=== PATIENT | female | born 1945 | race Caucasian/White ===

== ENCOUNTER 2017-03-16 02:46 | Inpatient (IN) | payer OTHER, MEDICAID ==
[2017-03-16 03:15] LABS: % IMMATURE GRANULYOCYTES 1.2 % (0.0-1.1); ABSOLUTE IMMATURE GRANULOCYTES 0.13 10^3/uL (0.00-0.10); ADD DIFF? NO; ADD MORPH? NO; ADD SCAN? NO; ATYPICAL LYMPHOCYTE FLAG 0 (0-99); FRAGMENT RBC FLAG 0 (0-99); HEMATOCRIT 42.1 % (38.0-47.0); HEMOGLOBIN 14.1 g/dL (12.6-16.3); LEFT SHIFT FLG 0 (0-99); LIPEMIA HEMOLYSIS FLAG 80 (0-99); MEAN CELL HEMOGLOBIN 29.1 pg (27.9-34.1); MEAN CELL HEMOGLOBIN CONCENTR. 33.5 g/dL (32.4-36.7); PLATELET CLUMPS FLAG 0 (0-99); PLATELET COUNT 287 10^3/uL (150-400); RED BLOOD CELL COUNT 4.84 10^6/uL (4.18-5.33); RED CELL DISTRIBUTION WIDTH 13.6 % (11.5-15.2)
--- NOTE | 2017-03-16 03:31 | CPEKG ---
Heart Rate: 63 RR Interval: 952 P-R Interval: 180 QRSD Interval: 112 QT Interval: 456 QTC Interval: 467 P [place]: 62 QRS [place]: 72 T Wave [place]: 87 EKG Severity - ABNORMAL ECG - EKG Impression: SINUS RHYTHM EKG Impression: NONSPECIFIC INTRAVENTRICULAR CONDUCTION DELAY EKG Impression: BORDERLINE INFERIOR Q WAVES Electronically Signed By: Rebecca Rodrigues 16-Mar-2017 07:55:46
[2017-03-16 03:33] LABS: ALANINE AMINOTRANSFERASE 42 IU/L (9-52); ALBUMIN 3.5 g/dL (3.5-5.0); ALKALINE PHOSPHATASE 105 IU/L (38-126); ANION GAP 11 mEq/L (8-16); ASPARTATE AMINOTRANSFERASE 29 IU/L (14-46); BILIRUBIN,TOTAL 0.2 mg/dL (0.1-1.4); CALCIUM 9.8 mg/dL (8.5-10.4); CARBON DIOXIDE 31 mEq/l (22-31); CHLORIDE 95 mEq/L (97-110); CREATININE 1.6 mg/dL (0.6-1.0); GLOMERULAR FILTRATION RATE 32; GLUCOSE 316 mg/dL (70-100); POTASSIUM 4.2 mEq/L (3.5-5.2); SODIUM 137 mEq/L (134-144); TOTAL PROTEIN 6.2 g/dL (6.3-8.2)
[2017-03-16] MEDS ORDERED: ACETAMINOPHEN 500 MG TAB PO ONE (04:28)
[2017-03-16] MEDS ORDERED: NS 500 ML IV ONE (04:28)
--- NOTE | 2017-03-16 04:29 | EDPHY ---
H & P Stated Complaint: Fall from standing - Low back and R wrist pain. Time Seen by Provider: 03/16/17 02:53 HPI/ROS: HPI The patient presents with a fall from standing which occurred when she got up to use the bathroom tonight at her long-term. She normally uses a walker. She fell backwards and to her right side onto an outstretched arm. She is complaining of right wrist pain and lower back pain in the midline. The pain is achy in nature and moderate in severity. REVIEW OF SYSTEMS Constitutional: No fever, no chills. Eyes: No discharge. ENT: No sore throat. Cardiovascular: No chest pain, no palpitations. Respiratory: No cough, no shortness of breath. Gastrointestinal: No abdominal pain, no vomiting. Genitourinary: No hematuria. Musculoskeletal: No back pain. Skin: No rashes. Neurological: No headache. PMHx: COPD with chronic hypoxic respiratory failure on 3 L of home O2, obstructive sleep apnea, atrial fibrillation, hypertension, systolic and diastolic CHF, obesity, hypothyroidism, type 2 diabetes on insulin, major depressive disorder Soc Hx: Resides at [facility] PHYSICAL General Appearance: Alert, no distress Eyes: Pupils equal and round no pallor or injection ENT, Mouth: Mucous membranes moist Respiratory: There are no retractions, lungs are clear to auscultation Cardiovascular: Regular rate and rhythm Gastrointestinal: Abdomen is soft and non-tender, no masses, bowel sounds normal Neurological: A&O, 5/5 strength in lower extremities which is symmetric Skin: Warm and dry, no rashes Musculoskeletal: Neck is supple non tender, there is midline tenderness throughout her lumbar spine and paraspinal region Extremities: Right wrist is edematous with limited range of motion secondary to pain, there is 2+ radial pulses, there is sensation intact to light touch of her fingers with brisk capillary refill Psychiatric: Patient is oriented X 3, there is no agitation Source: Patient Exam Limitations: No limitations - Personal History Current Tetanus/Diphtheria Vaccine: Unsure Current Tetanus Diphtheria and Acellular Pertussis (TDAP): Unsure - Medical/Surgical History Hx Asthma: No Hx Chronic Respiratory Disease: Yes Hx Diabetes: Yes Hx Cardiac Disease: Yes Hx Renal Disease: No Hx Cirrhosis: No Hx Alcoholism: No Hx HIV/AIDS: No Hx Splenectomy or Spleen Trauma: No Other PMH: COPD, A-Fib, HTN, hyperlipidemia, Hypothyroidism, DM, depression - Social History Smoking Status: Former smoker Constitutional: Initial Vital Signs Temperature (C) 36.6 C 03/16/17 02:49 Heart Rate 60 03/16/17 02:49 Respiratory Rate 18 03/16/17 02:49 Blood Pressure 161/66 H 03/16/17 02:49 O2 Sat (%) 94 03/16/17 02:49 O2 Delivery Mode Nasal Cannula O2 (L/minute) 3 Allergies/Adverse Reactions: latex Allergy (Verified 03/16/17 02:56) oxycodone Allergy (Verified 03/16/17 02:55) Home Medications: Medication Instructions Recorded Amlodipine Besylate 03/16/17 Benadryl 03/16/17 Byetta 03/16/17 Eliquis 03/16/17 Ferrous Sulfate 03/16/17 Furosemide 03/16/17 Gabapentin 03/16/17 Humalog 03/16/17 Klor-Con 03/16/17 Lantus Solostar 03/16/17 Levothyroxine 03/16/17 Losartan Potassium 03/16/17 Magnesium 03/16/17 Metoprolol Succinate 03/16/17 Montelukast Sodium 03/16/17 Pravastatin Sodium 03/16/17 Soliqua 100 Unit-33 Mcg/ml Pen 03/16/17 Spiriva Inhaler (RX) 03/16/17 Symbicort 80-4.5 Mcg Inhaler 03/16/17 Venlafaxine HCl 03/16/17 Medical Decision Making - Diagnostics EKG Interpretation: EKG: Complete interpretation has been separately recorded in the [employer] [facility] [employer] archive. Summary impression: Sinus rhythm, T-wave inversions in aVL Imaging Results: Right wrist three views shows distal radius fracture and ulnar styloid fracture , interpreted by me, radiology interpretation is pending. Lumbar spinal x-rays three views shows likely L1 compression fracture, interpreted by me, radiology interpretation is pending. Procedures: SPLINT Procedure: Splint placement. A ortho glass sugar-tong splint was applied to the right wrist by james. After application of the splint I returned and re-examined the patient. The splint was adequately immobilizing the joint and distal to the splint the patient's circulation and sensation was intact. Differential Diagnosis: This is a 71-year-old female with multiple medical problems including insulin- dependent diabetes, CHF, obesity who presents from her long-term with a fall from standing. She is complaining of right wrist pain and lower back pain. Differential diagnosis includes mechanical fall, vasovagal episode, electrolyte disturbance, wrist fracture, wrist sprain, lumbar spinal fracture versus strain. In the emergency department, x-rays were performed which did demonstrate distal radius fracture of the right with ulnar styloid fracture. This was nondisplaced and thus was placed in a sugar-tong splint. Lumbar spinal films reveal probable L1 compression fracture. I have a high suspicion clinically given this is where her tenderness is. Labs demonstrated elevated BUN and creatinine. I do not have an old for baseline. Because she has CHF, I have discovered her a small fluid bolus to prevent fluid overload. Glucose is 300, she says this is actually quite good for her, I will give her her usual Humalog. I have discussed the case with the hospitalist Dr. Garcia who will admit the patient. I have consulted with the orthopedist admission specialist and spoke with Marty for Dr. Roman. She their service will see the patient in consultation later in the morning. I have consulted with Neurosurgery for the patient's compression fracture and have discussed the case with Dr. Arevalo who will also consult later in the morning. - Data Points Laboratory Results: Laboratory Results 03/16/17 02:56 03/16/17 02:56 03/16/17 03/16/17 03/16/17 02:56 02:56 02:56 WBC 11.24 10^3/uL H 10^3/uL (3.80-9.50) RBC 4.84 10^6/uL 10^6/uL (4.18-5.33) Hgb 14.1 g/dL g/dL (12.6-16.3) Hct 42.1 % % (38.0-47.0) MCV 87.0 fL fL (81.5-99.8) MCH 29.1 pg pg (27.9-34.1) MCHC 33.5 g/dL g/dL (32.4-36.7) RDW 13.6 % % (11.5-15.2) Plt Count 287 10^3/uL 10^3/uL (150-400) MPV 10.0 fL fL (8.7-11.7) Neut % (Auto) 66.1 % % (39.3-74.2) Lymph % (Auto) 22.8 % % (15.0-45.0) Mcminn % (Auto) 6.5 % % (4.5-13.0) Eos % (Auto) 2.7 % % (0.6-7.6) Baso % (Auto) 0.7 % % (0.3-1.7) Nucleat RBC Rel Count 0.0 % % (0.0-0.2) Absolute Neuts (auto) 7.44 10^3/uL H 10^3/uL (1.70-6.50) Absolute Lymphs (auto) 2.56 10^3/uL 10^3/uL (1.00-3.00) Absolute Monos (auto) 0.73 10^3/uL 10^3/uL (0.30-0.80) Absolute Eos (auto) 0.30 10^3/uL 10^3/uL (0.03-0.40) Absolute Basos (auto) 0.08 10^3/uL 10^3/uL (0.02-0.10) Absolute Nucleated RBC 0.00 10^3/uL 10^3/uL (0-0.01) Immature Gran % 1.2 % H % (0.0-1.1) Immature Gran # 0.13 10^3/uL H 10^3/uL (0.00-0.10) Sodium 137 mEq/L mEq/L (134-144) Potassium 4.2 mEq/L mEq/L (3.5-5.2) Chloride 95 mEq/L L mEq/L (97-110) Carbon Dioxide 31 mEq/l mEq/l (22-31) Anion Gap 11 mEq/L mEq/L (8-16) BUN 43 mg/dL H mg/dL (7-23) Creatinine 1.6 mg/dL H mg/dL (0.6-1.0) Estimated GFR 32 Glucose 316 mg/dL H mg/dL (70-100) Calcium 9.8 mg/dL mg/dL (8.5-10.4) Total Bilirubin 0.2 mg/dL mg/dL (0.1-1.4) AST 29 IU/L IU/L (14-46) ALT 42 IU/L IU/L (9-52) Alkaline Phosphatase 105 IU/L IU/L (38-126) Troponin I 0.013 ng/mL ng/mL (0.000-0.034) Total Protein 6.2 g/dL L g/dL (6.3-8.2) Albumin 3.5 g/dL g/dL (3.5-5.0) Medications Given: Discontinued Medications Acetaminophen (Tylenol) 1,000 mg PO EDNOW ONE Stop: 03/16/17 04:29 Last Admin: 03/16/17 05:18 Dose: 1,000 mg Sodium Chloride (Ns) 500 mls @ 1,000 mls/hr IV EDNOW ONE PRN Reason: Protocol Stop: 03/16/17 04:57 Last Admin: 03/16/17 05:18 Dose: 500 mls Insulin Human Lispro (Humalog Lispro) 13 unit SC EDNOW ONE Stop: 03/16/17 05:28 Last Admin: 03/16/17 05:35 Dose: 13 unit Morphine Sulfate (Morphine) 4 mg IVP EDNOW ONE Stop: 03/16/17 04:29 Last Admin: 03/16/17 05:19 Dose: 4 mg Departure - Departure Disposition: [facility] Inpatient Acute Clinical Impression: Hyperglycemia Fall Qualifiers: Encounter type: initial encounter Qualified Code(s): W19.XXXA - Unspecified fall, initial encounter Distal radius fracture, right Qualifiers: Encounter type: initial encounter Fracture type: closed Fracture morphology: Colles' Qualified Code(s): S52.531A - Colles' fracture of right radius, initial encounter for closed fracture Lumbar compression fracture Qualifiers: Encounter type: initial encounter Lumbar vertebra fracture level: L1 Fracture type: closed Qualified Code(s): S32.010A - Wedge compression fracture of first lumbar vertebra, initial encounter for closed fracture Acute renal failure Qualifiers: Acute renal failure type: unspecified Qualified Code(s): N17.9 - Acute kidney failure, unspecified Condition: Fair
[2017-03-16] MEDS ORDERED: INSULIN LISPRO 100 UNIT/ML SC ONE (05:27)
[2017-03-16] MEDS ORDERED: ALBUTEROL 3 ML DEYVIAL IH PRN (07:21)
[2017-03-16] MEDS ORDERED: ACETAMINOPHEN 325 MG TAB PO PRN (07:21)
[2017-03-16] MEDS ORDERED: ONDANSETRON 4 MG/2 ML VIAL IVP PRN (07:21)
[2017-03-16] MEDS ORDERED: D50W 25 GM/50 ML SYR IVP PRN (07:23)
--- NOTE | 2017-03-16 08:18 | GHP ---
[f rep st] HISTORY AND PHYSICAL DATE OF ADMISSION: 03/16/2017 CHIEF COMPLAINT: Fall, back pain and arm pain. HISTORY OF PRESENT ILLNESS: This is a pleasant 71-year-old female with multiple medical issues inclu ding chronic respiratory failure related to COPD, on 3 L/minute continuously; diabetes type 2, insuli n dependent, uncontrolled, without known complications; obstructive sleep apnea; atrial fibrillation; hypertension; hyperlipidemia; systolic/diastolic CHF; obesity; hypothyroidism; and major depressive disorder, presents to the emergency department from [facility] after a fall. Patient reports that h er oxygen came off at some point in the night time. She did get up to go to the bathroom. However, she became unsteady and fell backwards, landing on her right wrist and on her bottom. Patient denies any loss of consciousness. No chest pain, palpitations, shortness of breath, cough, fevers, chills, or focal deficits. Patient currently denying any numbness or tingling to her hands or feet. She de nies any headache. No lightheadedness. She is complaining of significant back pain and is unable to get comfortable, as she is quite restless. REVIEW OF SYSTEMS: Negative except as noted above. ALLERGIES: Latex and oxycodone. HOME MEDICATIONS: As per accompanying [facility] paper med rec: 1. Klor-Con 10 mEq p.o. Thursday, Thursday, Thursday, , Thursday in the morning with diuresis. 2. Amlodipine 10 mg p.o. daily. 3. Gabapentin 100 mg p.o. in the morning. 4. Levothyroxine 112 mcg p.o. daily in the morning. 5. Losartan HCTZ 50/12.5 mg p.o. daily. 6. Magnesium oxide 500 mg p.o. daily. 7. Metoprolol succinate 200 mg p.o. daily in the morning. 8. Singulair 10 mg p.o. daily in the morning. 9. Spiriva 18 mcg cap 2 inhalations daily. 10. Multivitamin 1 tab p.o. daily. 11. Venlafaxine 150 mg XR daily. 12. Eliquis 5 mg p.o. daily for AFib. 13. Furosemide 20 mg p.o. b.i.d. for edema. 14. Gabapentin 300 mg p.o. b.i.d. for in the afternoon and at h.s. 15. Symbicort 80/4.5 mcg HFA 2 puffs inhaled b.i.d. 16. Benadryl topical cream p.r.n. legs for itching. 17. Ferrous sulfate 325 mg p.o. at h.s. 18. Pravastatin 80 mg p.o. at h.s. 19. Soliqua 0.033 mg/mL, 25 units subcu in the morning. 20. Tylenol PM 0.5 mg at h.s. p.r.n. 21. Tylenol 1000 mg p.o. q.6 hours p.r.n. for mild pain. PAST MEDICAL HISTORY: Significant for diabetes type 2, insulin dependent, uncontrolled, without comp lications; COPD with chronic hypoxic respiratory failure on 3 L/minute continuous oxygen by nasal can nula; obstructive sleep apnea; atrial fibrillation, unknown if chronic or paroxysmal; benign essentia l hypertension; hyperlipidemia; systolic and diastolic CHF; obesity with BMI currently of 38.4; hypot hyroidism; major depressive disorder. PAST SURGICAL HISTORY: Patient denies. FAMILY HISTORY: Patient denies any family history of diabetes, cardiac disease, or other medical pro blems. All were healthy. SOCIAL HISTORY: Patient is a resident at [facility]. She does not currently smoke, drink, or do dr de la cruz. She has a previous history of significant tobacco use. CODE STATUS: Full, as per MOLST form. PHYSICAL EXAMINATION: VITAL SIGNS: Upon arrival to the emergency department: Blood pressure 161/66 , heart rate 60, respiratory rate 18, O2 sat 94% on room air, with temperature 36.6. Current vitals: Blood pressure 142/68, heart rate is 70, respiratory rate 18, O2 sat is 92 on 3 L by nasal cannula. GENERAL: [id number]-gn-[id number] distress with complaints of back pain. Patient is restless, trying to g et comfortable in the [facility]. She is pleasant, but a chronically ill-appearing lady who is also appe ars older than stated age, does appear uncomfortable. She is awake and cooperative. HEAD: Normocep halic, atraumatic. EYES: Extraocular muscles are grossly intact. No scleral icterus, conjunctival injection. Pupils are equal, round, decreased reactivity to light bilaterally and symmetric. Mucous membranes appear slightly dry. Nasal cannula is in place. NECK: Supple. Trachea midline. CV: R egular rate and rhythm. Slightly bradycardic in the 60s. No murmurs, rubs, or gallops appreciated. Slightly distant heart sounds. RESPIRATORY: Unlabored breathing. Lungs are clear to auscultation bilaterally. No wheezes, rales, or rhonchi. Air movement is overall diminished, but no wheezing. A BDOMEN: Obese, soft, nontender to palpation. No rebound, guarding, or masses appreciated. : No Irvin catheter in place. No suprapubic tenderness to palpation. No CVA tenderness. EXTREMITIES: T he patient moves all extremities. Strength is grossly normal, but overall patient with generalized d econditioning and weakness and requires some assistance sitting up. Her right arm is in a splint. N EURO: Cranial nerves grossly nonfocal. No facial drooping. Patient is awake, alert, and oriented x 3. She is somnolent and occasionally does appear to be falling asleep, although she does continue to answer questions with her eyes closed. PSYCH: Patient is anxious. She does appear uncomfortable. She is restless, but does attempt to be cooperative. LABORATORY STUDIES: WBC 11.24, H and H are 14.1, 42.1, MCV of 87.0, platelet count is 287, no bands. Immature granulocyte percent is 1.2. Sodium is 137, potassium is 4.2, chloride 95, CO2 is 31, anion gap 11, BUN 43, creatinine is 1.6, GFR is 32, glucose is 316, calcium 9.8, total bilirubin 0.2, ALT is 42, AST is 29, alkaline phosphatase is 105. Troponin 0.013. Total protein 6.2, albumin is 3.5. EKG reviewed myself, showing normal sinus rhythm in the 60s, nonspecific interventricular conduction delay. Q-waves present in the inferior leads. There is less than [address]-elevation in lead III, II, and aVF. Patient without any complaints of chest pain. Wrist x-ray on the right, reviewed myself. Report pending, showing a distal radius fracture. Lumbar spine x-ray, image reviewed myself, report is pending. Possible acute L1 fracture. ASSESSMENT AND PLAN: Pleasant 71-year-old female with multiple chronic medical problems who presents following a fall, suspect mechanical versus related to possibly some hypoxia, as patient reported th at she had been off her oxygen, trying to get to the bathroom. 1. Intractable back pain related to likely compression fracture. Neurosurgery is consulted from the emergency department. Patient has received morphine. She is not able to get comfortable. Continue with pain medications as possible. Patient has listed oxycodone as an allergy. 2. Right distal radius fracture. Orthopedics consulted from the emergency department. Will plan to see the patient this morning as well. Currently in a splint. Patient is dependent upon a walker fo r ambulation. PT/OT will be consulted for mobility evaluation and assessment. 3. Fall. Suspect this is likely mechanical. The patient did not have any evidence of hypoxia on ar rival. She does report that her oxygen had fallen off when she did get up to go to the bathroom. Franco perla is not currently in any respiratory distress. Rather, she is more uncomfortable and complaining of pain. We will monitor her O2 sats, particularly while patient is receiving any narcotic therapy for her pain control. 4. Acute kidney injury suspected versus chronic kidney disease in the setting of uncontrolled diabet es. Baseline creatinine is unknown at this time, as the patient has never had a visit in our system. We will plan to give some gentle IV fluid hydration, her mucous membranes appear slightly dry, and plan to repeat a BMP in the morning. 5. Leukocytosis is mildly elevated and is likely reactive. Patient without any fevers. No complain ts of dysuria, cough, rhinorrhea, and so we will continue to monitor. 6. Diabetes type 2, uncontrolled, insulin dependent. We will plan to resume patient's insulin and a dd a sliding scale with Accu-Cheks. 7. Benign essential hypertension. Blood pressures at this point slightly elevated, but could be rel ated to pain, so we will continue to monitor. We will add some hydralazine p.r.n. 8. Hyperlipidemia. Continue patient's statin. 9. Obstructive sleep apnea. Will need to clarify if the patient uses a CPAP. However, she states s he only wears her oxygen. Currently not requiring any supportive positive-pressure. Continue with o xygen supplementation. 10. Atrial fibrillation. Patient currently normal sinus rhythm and rate is controlled. Hold off on cardiac monitoring at this time unless patient's heart rate should increase on vital check. 11. Systolic/diastolic congestive heart failure. We will have to monitor patient's fluid status todd sely with some gentle IV fluid hydration as noted above. The patient does currently appear to be sli ghtly dehydrated and also with acute kidney injury. 12. Obesity with BMI of 38.4. Mobilization as possible. PT/OT has been consulted to assist with th e complication with her need for walker and now a right wrist fracture. 13. Hypothyroidism. Continue patient's levothyroxine. 14. Major depressive disorder. Continue patient's venlafaxine. 15. Fluid, electrolyte, nutrition. IV fluids as noted above. Electrolyte monitoring and replacemen t p.r.n. An ADA diet has been ordered. 16. Prophylaxis. SCDs, holding anticoagulation pending surgical service evaluation. CODE STATUS: Per MOLST form and patient is full. Patient's son is listed as proxy. DISPOSITION: Patient has been admitted to observation on the medical floor. We will await recommend ations from the surgical services as well as Therapies to evaluate for patient's likelihood of succes sful discharge back to [facility] with supportive services and equipment. /[id number]/MODL
--- NOTE | 2017-03-16 08:33 | GCON ---
[f rep st] CONSULTATION DATE OF CONSULTATION: 03/16/2017 The patient was seen in the emergency room by Dr. Echeverria and myself at approximately 7:10 this morning. REASON FOR CONSULTATION: Low back pain with evidence of compression fracture on x-ray. HOSPITAL COURSE/HISTORY OF MAJOR MEDICAL FINDINGS: The patient is a 71-year- old female, who currently lives at an assisted living facility, who states that she fell from standing while using the bathroom overnight. She developed pain in her lower back at that time, as well as pain in her right wrist. She denies any leg numbness, tingling, pain, or weakness. Denies any loss of bowel or bladder control. REVIEW OF SYSTEMS: Review of systems is negative other than what is stated in the HPI. Please see pertinent negatives and pertinent positives. PAST MEDICAL HISTORY: Significant for COPD with chronic hypoxic respiratory failure. She is maintained on 3 L of oxygen at home. Has a history of obstructive sleep apnea, atrial fibrillation, hypertension, systolic and diastolic CHF, obesity, hypothyroidism, diabetes type 2, and major depressive disorder. SOCIAL HISTORY: The patient lives at [facility]. She is a prior smoker, but quit many years ago. She denies any alcohol or illicit drugs. FAMILY HISTORY: The patient does have a strong family history of cardiac disease, she states on both sides of her family. PAST SURGICAL HISTORY: The patient denies any past surgical history. ALLERGIES: Latex and oxycodone. HOME MEDICATIONS: Include amlodipine, Benadryl, Byetta, Eliquis, ferrous sulfate, furosemide, gabapentin, Humalog, Klor-Con, Lantus, levothyroxine, losartan, magnesium, metoprolol, montelukast, sodium, pravastatin sodium, Soliqua pen, Spiriva, Symbicort, and venlafaxine. PHYSICAL EXAM: VITALS: BP is 136/60, heart rate is 60. She is 91% on 3 L nasal cannula. Temperature is 36.6. GENERAL APPEARANCE: Patient is in no acute distress. She is alert and oriented x3. She answers questions appropriately, and affect is appropriate for the given situation. NEUROLOGIC: Cranial nerves 2-12 are grossly intact. EOMI and PERRLA. Patient is 5/5 and equal in her bilateral upper and bilateral lower extremities including her deltoids, triceps, biceps, wrist flexors, extensors, interossei, intrinsic litigator , iliopsoas, hamstrings, quadriceps, plantar flexion, dorsiflexion, and EHL. Patient has sensation to her bilateral upper and bilateral lower extremities. MUSCULOSKELETAL: The patient does have tenderness along her lumbar spine, in the upper lumbar region. Negative clonus bilaterally. DIAGNOSTIC REVIEW: Patient underwent an x-ray of her lumbar spine which demonstrated an L1 compression fracture. ASSESSMENT AND PLAN: The patient is a 71-year-old female, who fell from standing overnight, sustained a right wrist injury, which is currently splinted , as well as a low back L1 compression fracture. The patient does have a history of falling. Therefore, we will obtain an MRI to evaluate the acuteness of this fracture and rule out any nerve compression. Did discuss with patient that we will order her a [place] brace for her to wear whenever she is up and out of bed. PT and OT to evaluate the patient as well. If her symptoms do not improve with bracing or she has intractable pain, then she will require surgical stabilization. Patient was again seen and examined both by Dr. Echeverria and myself. /[id number]/MODL MTDD
[2017-03-16] MEDS ORDERED: DIPHENHYDRAMINE CREAM TP PRN (08:59)
[2017-03-16] MEDS ORDERED: ACETAMN/DIPHENHYDRAMINE 500/25MG TAB PO PRN (08:59)
[2017-03-16] MEDS ORDERED: APIXABAN 5 MG TAB PO SCH (09:00)
[2017-03-16] MEDS ORDERED: GABAPENTIN 100 MG CAP PO SCH (09:00)
[2017-03-16] MEDS ORDERED: INSULIN LISPRO SQ SCH (09:00)
[2017-03-16] MEDS ORDERED: Herbals/Supplements -Info Only PO SCH (09:00)
[2017-03-16] MEDS: INSULIN LISPRO 100 UNIT/ML SC SCH ×5 (09:59→17:22)
[2017-03-16] MEDS: IPRATROPIUM/ALBUTEROL 3 ML DEYVIAL IH SCH ×3 (10:13→21:17)
[2017-03-16] MEDS: BUDESONIDE/FORMOTEROL 80/4.5 60 PUFFS/MDI IH SCH ×2 (10:24→21:17)
[2017-03-16] MEDS: TIOTROPIUM INHALER 18 MCG/DOSE 5 DOSE/MDI IH SCH (10:24)
[2017-03-16 11:23] LABS: HEMOGLOBIN A1C 11.1 % (4.0-6.0)
[2017-03-16] MEDS ORDERED: ACETAMINOPHEN 500 MG TAB PO PRN (11:25)
[2017-03-16] MEDS: HYDROCODONE/APAP 5/325 TAB PO PRN ×2 (12:10→20:02)
[2017-03-16] MEDS: POTASSIUM CL 10 MEQ TAB PO SCH (12:10)
[2017-03-16] MEDS: FUROSEMIDE 20 MG TAB PO SCH ×2 (12:10→12:11)
[2017-03-16] MEDS: LOSARTAN/HCTZ 50/12.5 1 TAB PO SCH (12:11)
[2017-03-16] MEDS: VENLAFAXINE XR 75 MG CAP PO SCH (12:11)
[2017-03-16] MEDS: LIXISENATIDE SQ SCH (12:12)
[2017-03-16] MEDS: INSULIN GLARGINE SQ SCH (12:12)
[2017-03-16] MEDS: METOPROLOL SUCCINATE XR 100 MG TAB PO SCH (12:17)
--- NOTE | 2017-03-16 14:13 | ASMTCMCOM ---
CM Note CM Note Notes: Patient admitted through ED s/p mechanical fall. Injury to wrist in addition to compression fracture. Diagnostics and therapy notes pending. Needs to be determinied at this time. She is from [facility]. CM to follow. Date Signed: 03/16/2017 02:13 PM Electronically Signed By:Suri Williamson RN
--- NOTE | 2017-03-16 14:54 | HOSPPROG ---
Hospitalist Progress Note Assessment/Plan: 71y female with c/o back pain and wrist pain. First encounter, chart reviewed. #AMS acute, med related #R Radial fx splint #back pain awaiting MRI #Fall PT/OT #JASON dehydration #Leukocytosis mild follow #Dm 2 cont care uncontrolled needs more aggressive therapy #HTN cont meds #Obese #Afib stable #Dispo unclear, will likely need SnF >35 min spent evaluating pt and care coordination Subjective: Still having pain. Some confustion. Objective: Vital Signs Temp Pulse Resp BP Pulse Ox 36.7 C 69 18 114/92 H 94 03/16/17 12:28 03/16/17 12:28 03/16/17 12:28 03/16/17 12:28 03/16/17 12:28 03/15/17 03/16/17 03/17/17 05:59 05:59 05:59 Intake Total 500 Balance 500 - Physical Exam Constitutional: chronically ill appearing, obese, uncomfortable Eyes: PERRL, anicteric sclera, EOMI Ears, Nose, Mouth, Throat: moist mucous membranes, hearing normal, ears appear normal Cardiovascular: irregularly irregular, edema, No JVD Respiratory: no respiratory distress, no rales or rhonchi, reduced air movement Gastrointestinal: normoactive bowel sounds, No tenderness, No ascites Skin: warm, normal color, No erythema Musculoskeletal: pain with ROM, muscular tenderness, generalized weakness Psychiatric: not anxious, not encephalopathic, poor judgement, poor memory ICD10 Worksheet Patient Problems: Problems Problem Status Onset Fall Acute Distal radius fracture, right Acute Lumbar compression fracture Acute Hyperglycemia Acute Acute renal failure Acute
--- NOTE | 2017-03-16 18:35 | GCON ---
[f rep st] CONSULTATION CHIEF COMPLAINT: Right wrist pain. HISTORY OF PRESENT ILLNESS: Patient is a 71-year-old [id number] female who fell while resid ing in her nursing facility this morning and landed on her outstretched arm. She was seen in the ER, where x-rays were taken that showed a right distal radius fracture and ulnar styloid fracture. She was placed in a sugar-tong splint and made nonweightbearing. She denies any other orthopedic complai nts. PAST MEDICAL HISTORY: COPD with chronic hypoxic respiratory failure, on 3 L of home oxygen; obstruct richi sleep apnea, atrial fibrillation; hypertension, systolic and diastolic; congestive heart failure; obesity; hypothyroidism; type 2 diabetes on insulin; and major depressive disorder. CURRENT MEDICATIONS: Please see medication list in her chart. ALLERGIES TO MEDICATIONS: No known drug allergies. SURGICAL HISTORY: Unremarkable. FAMILY HISTORY: Noncontributory. REVIEW OF SYSTEMS: A 10-point review is done. Negative for any other complaints, concerns, or histo ry, except for what was listed in the HPI. PHYSICAL EXAMINATION: GENERAL: Pleasant, NAD. HEENT: NC/AT, EOMI, PERRLA. Ears and nares patent without discharge. Oropharynx is clear. NECK: Nontender to palpation, full range of motion. MUSCU LOSKELETAL: Right upper extremity: A sugar-tong splint is in place and is well fitted. She is able to move all 5 fingers. She has normal sensation to light touch in the right upper extremity. SKIN: Warm, dry, and intact. NEUROLOGIC: Nonfocal. No deficits noted. PSYCHIATRIC: Alert and oriente d x3. Appropriate mood and affect. RADIOGRAPHS: X-rays are reviewed of the right wrist and show a nondisplaced distal radius fracture a nd ulnar styloid fracture. IMPRESSION: Right nondisplaced distal radius fracture and ulnar styloid fracture. PLAN: Patient was seen and examined by Dr. Roman, and we discussed with the patient that this fractu re would be treated nonoperatively in a splint. She should remain nonweightbearing on the right uppe r extremity. Conservative treatment was discussed, including rest and elevation and the use of ice a nd pain medicine as needed. All questions were answered to the patient's satisfaction. Orthopedical ly, she is stable. /[id number]/MODL
[2017-03-16] MEDS: HYDROmorphONE/DILAUDID 1 MG/ML INJ IVP PRN (19:53)
[2017-03-16] MEDS: PRAVASTATIN SODIUM 40 MG TAB PO SCH (20:02)
[2017-03-16] MEDS: FERROUS SULFATE 325 MG TAB PO SCH (20:02)
[2017-03-16] MEDS ORDERED: NON-FORMULARY NEW DRUG (Pravastatin Sodium [Pravastatin Sodium] 80 MG) PO SCH (21:00)
[2017-03-16] MEDS: LIDOCAINE 5% 1 EA PATCH TD SCH (23:43)
[2017-03-17] MEDS: HYDROCODONE/APAP 5/325 TAB PO PRN ×2 (01:33→21:31)
[2017-03-17] MEDS: IPRATROPIUM/ALBUTEROL 3 ML DEYVIAL IH SCH ×4 (05:13→22:05)
[2017-03-17] MEDS: LEVOTHYROXINE 112 MCG TAB PO SCH (05:13)
[2017-03-17 05:41] LABS: % IMMATURE GRANULYOCYTES 0.6 % (0.0-1.1); ABSOLUTE IMMATURE GRANULOCYTES 0.08 10^3/uL (0.00-0.10); ADD DIFF? NO; ADD MORPH? NO; ADD SCAN? NO; ATYPICAL LYMPHOCYTE FLAG 0 (0-99); FRAGMENT RBC FLAG 0 (0-99); HEMATOCRIT 43.7 % (38.0-47.0); HEMOGLOBIN 14.5 g/dL (12.6-16.3); LEFT SHIFT FLG 0 (0-99); LIPEMIA HEMOLYSIS FLAG 80 (0-99); MEAN CELL HEMOGLOBIN 29.2 pg (27.9-34.1); MEAN CELL HEMOGLOBIN CONCENTR. 33.2 g/dL (32.4-36.7); MEAN CELL VOLUME 88.1 fL (81.5-99.8); MEAN PLATELET VOLUME 9.9 fL (8.7-11.7); PLATELET CLUMPS FLAG 10 (0-99); PLATELET COUNT 245 10^3/uL (150-400); RED BLOOD CELL COUNT 4.96 10^6/uL (4.18-5.33); RED CELL DISTRIBUTION WIDTH 13.8 % (11.5-15.2)
--- NOTE | 2017-03-17 06:52 | NEUSURGPN ---
Assessment/Plan: Assessment: 71 yo female that is admitted to IM s/p fall with L1 compression fracture Plan: -s/p fall with L1 compression fracture -pending MRI of the L spine -pt with lower back pain and denies any LE complaints to me this am -will d/w Dr Echeverria about treatment plan -PT/OT-CPM -[place] brace ordered -defer to ortho for wrist fracture/ortho injuries -will review MRI once completed and develop plan accordingly -warning signs reviewed -call with any questions or concerns -pt understands and agrees Subjective: Awake and alert. NAD. No gonzalez/neck/chest/abd or gu complaints. No f/c/n/v/d. Objective: AAO x 3, PERRLA/EOMI no droop CN 2-12 grossly intact +lt touch 5/5 BUE/BLE = Neuro Check Frequency: per routine Urinary Catheter in Place: No - Physician Discussed Patient with : Juwan Patient Seen by : Juwan Neurosurgery Physical Exam - Vitals, I&O, Labs I and O 03/16/17 03/17/17 03/18/17 05:59 05:59 05:59 Intake Total 1400 Output Total 2800 Balance -1400 Weight 91.444 kg Intake: Oral (ml) 900 IV Infused (ml) 500 Output: Urine (ml) 2800 Bedside Commode 2800 Other: Number of Voids Bedside Commode 1 Vital Signs Temp Pulse Resp BP Pulse Ox 36.7 C 74 16 153/85 H 92 03/17/17 04:25 03/17/17 05:16 03/17/17 05:16 03/17/17 04:25 03/17/17 05:16 Laboratory Results 03/17/17 05:32 ICD10 Worksheet Patient Problems: Problems Problem Status Onset Acute renal failure Acute Distal radius fracture, right Acute Fall Acute Hyperglycemia Acute Lumbar compression fracture Acute
[2017-03-17 07:14] LABS: ANION GAP 11 mEq/L (8-16); CALCIUM 10.2 mg/dL (8.5-10.4); CARBON DIOXIDE 28 mEq/l (22-31); CHLORIDE 99 mEq/L (97-110); CREATININE 1.2 mg/dL (0.6-1.0); GLOMERULAR FILTRATION RATE 44; GLUCOSE 363 mg/dL (70-100); POTASSIUM 4.2 mEq/L (3.5-5.2); SODIUM 138 mEq/L (134-144)
[2017-03-17] MEDS: INSULIN GLARGINE SQ SCH (07:59)
[2017-03-17] MEDS: LIXISENATIDE SQ SCH (07:59)
[2017-03-17] MEDS: INSULIN LISPRO 100 UNIT/ML SC SCH ×6 (08:06→18:08)
[2017-03-17] MEDS: FUROSEMIDE 20 MG TAB PO SCH ×2 (08:23→11:19)
[2017-03-17] MEDS: LOSARTAN/HCTZ 50/12.5 1 TAB PO SCH (08:23)
[2017-03-17] MEDS: METOPROLOL SUCCINATE XR 100 MG TAB PO SCH (08:24)
[2017-03-17] MEDS: POTASSIUM CL 10 MEQ TAB PO SCH (08:24)
[2017-03-17] MEDS: LIDOCAINE 5% 1 EA PATCH TD SCH (08:24)
[2017-03-17] MEDS: HYDROmorphONE/DILAUDID 1 MG/ML INJ IVP PRN ×2 (08:45→12:42)
--- NOTE | 2017-03-17 08:47 | SOAPPROG ---
SOSARAH Progress Note Assessment/Plan: Assessment/Plan: nondisplaced right distal radius fracture and ulnar styloid fracture HOD#1 - Continue pain management - NWB RUE - Continue PT/OT - SCDs/TEDs for mechanical VTE prophylaxis - Follow-up with Dr. Roman in 1 week for repeat x-rays and evaluation 03/17/17 08:44 Subjective: Pt states she is having pain in her back, otherwise, no pain in the R wrist. Pt denies fever, chills, chest pain, SOB, abdominal pain, N/V/D, numbness, tingling and calf pain. Objective: Vital Signs Temp Pulse Resp BP Pulse Ox 36.7 C 88 17 117/53 L 93 03/17/17 04:25 03/17/17 08:24 03/17/17 07:21 03/17/17 08:24 03/17/17 07:21 Laboratory Results 03/17/17 05:32 03/17/17 05:32 03/16/17 03/17/17 03/18/17 05:59 05:59 05:59 Intake Total 1400 Output Total 2800 Balance -1400 Physical Exam - Physical Exam General Appearance: alert, no apparent distress Cardiac/Chest: normal peripheral pulses Skin: normal color, warm/dry Extremities: normal inspection, normal capillary refill, other (splint intact RUE), No pedal edema, No calf tenderness, No swelling, No Matthew's sign Neuro/Psych: no motor/sensory deficits, alert ICD10 Worksheet Patient Problems: Problems Problem Status Onset Acute renal failure Acute Distal radius fracture, right Acute Fall Acute Hyperglycemia Acute Lumbar compression fracture Acute
[2017-03-17] MEDS: BUDESONIDE/FORMOTEROL 80/4.5 60 PUFFS/MDI IH SCH ×2 (08:52→17:55)
[2017-03-17] MEDS: TIOTROPIUM INHALER 18 MCG/DOSE 5 DOSE/MDI IH SCH ×2 (08:53→17:55)
[2017-03-17] MEDS ORDERED: KETOROLAC 30 MG/1 ML SDV IVP ONE (09:04)
[2017-03-17] MEDS: traMADol 50 MG TAB PO PRN (11:20)
[2017-03-17] MEDS: PATCH REMOVAL 1 EA PATCH TD SCH ×2 (11:42→21:45)
[2017-03-17] MEDS: VENLAFAXINE XR 75 MG CAP PO SCH (11:49)
[2017-03-17] MEDS ORDERED: KETOROLAC 15 MG/1 ML SDV IVP SCH (12:00)
[2017-03-17 13:05] LABS: COLOR YELLOW; LEUKOCYTE ESTERASE,URINE NEGATIVE (NEGATIVE); NITRITE,URINE NEGATIVE (NEGATIVE)
[2017-03-17 13:18] LABS: MUCUS TRACE /lpf (NONE-1+)
--- NOTE | 2017-03-17 13:52 | ASMTCMCOM ---
CM Note CM Note Notes: PT rec SNF, spoke w pt and granddaughter who request referral to [facility]. [facility] accepts pt and has insurance auth from [employer]. Pt PASRR triggered due to major depression, faxed to [facility] today. CM to follow. D/c plan of care: [facility] when medically stable and PASRR received from OBRA coordinator . Date Signed: 03/17/2017 01:52 PM Electronically Signed By:JAYLEEN Diaz
--- NOTE | 2017-03-17 16:14 | HOSPPROG ---
Hospitalist Progress Note Assessment/Plan: 71 yo F with PMH of DM, poorly controlled, admitted s/p fall with back pain and distal radial fracture now complicated by AMS # right distal radial fracture: ortho consulted and non operative management pursued, patient in a splint currently # acute encephalopathy: worsening over the course of the day today, most c/w delirium with waxing and waning mentation and no focal neurologic signs. Patients family notes that she has had this multiple times in the past--in the past it has been associated with pain meds, elevated glucoses, pain etc. Will get ecg, no significant metabolic derangements other than elevated glucose. # back pain: pain has been an issue, [id number] fracture per NSG although radiology read differs from that. Plan is for MRI versus CT, appreciate nsg input # elsie: 2/2 volume depletion and has improved since admission # DM2, poorly controlled: A1c 11.1, do not have the insulin regimen here that she uses at home, continue SSI and will add insulin glargine lower dose given poor po intake currently # copd/chronic hypoxic respiratory failure: at baseline on 3L, stable # fall: patient fairly debilitated at baseline it sounds like, pt/ot involved, lives independently currently # chronic medical issues: htn, obesity (BMI 37), chf, a fib # dispo: IP status, will need > 48 hours stay for eval/mgmt of above Patient new to my care. Old records reviewed and summarized as above. Care plan reviewed with patients grand daughter present at bedside. Subjective: no significant overnight events, patient is somnolent and having difficulty remaining awake Objective: Vital Signs Temp Pulse Resp BP Pulse Ox 36.7 C 73 15 151/99 H 93 03/17/17 04:25 03/17/17 15:38 03/17/17 11:31 03/17/17 15:38 03/17/17 11:31 Laboratory Results 03/17/17 05:32 03/17/17 05:32 03/16/17 03/17/17 03/18/17 05:59 05:59 05:59 Intake Total 1400 Output Total 2800 Balance -1400 somnolent, falling asleep while talking to me anicteric op clear rrr no mrg cta dec bs throughout soft nt nd no cce warm dry well perfused ICD10 Worksheet Patient Problems: Problems Problem Status Onset Fall Acute Distal radius fracture, right Acute Lumbar compression fracture Acute Hyperglycemia Acute Acute renal failure Acute
--- NOTE | 2017-03-17 17:14 | PDMN ---
Medical Necessity Medical necessity: Patient transitioned to inpatient status per physician note and MCG M-[id number] Delirium (acute encephalopathy, worsening during the day and c/w delirium; L1 compression fracture and R radial fracture s/p fall; poorly controlled DM2; LOS will be > 2 midnights for ongoing eval and mgt of same.)
--- NOTE | 2017-03-17 17:41 | CPEKG ---
Heart Rate: 79 RR Interval: 759 QRSD Interval: 114 QT Interval: 412 QTC Interval: 473 P [place]: 57 QRS [place]: 69 T Wave [place]: 75 EKG Severity - ABNORMAL ECG - EKG Impression: SINUS RHYTHM EKG Impression: BORDERLINE INFERIOR Q WAVES EKG Impression: COMPARED WITH 03/16/2017 AT 3:30 A.M. NO SIGNIFICANT CHANGE Electronically Signed By: Ledy Butler 17-Mar-2017 18:46:31
[2017-03-17] MEDS ORDERED: INSULIN GLARGINE 100 UNITS/ML SYRINGE SC SCH (21:00)
[2017-03-17] MEDS: FERROUS SULFATE 325 MG TAB PO SCH (21:30)
[2017-03-17] MEDS: ACETAMN/DIPHENHYDRAMINE 500/25MG TAB PO PRN (21:31)
[2017-03-17] MEDS: PRAVASTATIN SODIUM 40 MG TAB PO SCH (21:31)
[2017-03-18] MEDS: HYDROCODONE/APAP 5/325 TAB PO PRN ×4 (03:37→20:22)
[2017-03-18 04:48] LABS: % IMMATURE GRANULYOCYTES 0.5 % (0.0-1.1); ABSOLUTE IMMATURE GRANULOCYTES 0.07 10^3/uL (0.00-0.10); ADD DIFF? NO; ADD MORPH? NO; ADD SCAN? NO; ATYPICAL LYMPHOCYTE FLAG 0 (0-99); FRAGMENT RBC FLAG 0 (0-99); HEMATOCRIT 44.1 % (38.0-47.0); HEMOGLOBIN 14.5 g/dL (12.6-16.3); LEFT SHIFT FLG 10 (0-99); LIPEMIA HEMOLYSIS FLAG 80 (0-99); MEAN CELL HEMOGLOBIN 28.9 pg (27.9-34.1); MEAN CELL HEMOGLOBIN CONCENTR. 32.9 g/dL (32.4-36.7); MEAN PLATELET VOLUME 10.3 fL (8.7-11.7); PLATELET CLUMPS FLAG 0 (0-99); PLATELET COUNT 242 10^3/uL (150-400); RED BLOOD CELL COUNT 5.01 10^6/uL (4.18-5.33); RED CELL DISTRIBUTION WIDTH 13.7 % (11.5-15.2)
[2017-03-18] MEDS: IPRATROPIUM/ALBUTEROL 3 ML DEYVIAL IH SCH ×4 (05:20→21:47)
[2017-03-18 05:24] LABS: ANION GAP 15 mEq/L (8-16); CALCIUM 10.5 mg/dL (8.5-10.4); CARBON DIOXIDE 25 mEq/l (22-31); CHLORIDE 97 mEq/L (97-110); CREATININE 1.1 mg/dL (0.6-1.0); GLOMERULAR FILTRATION RATE 49; GLUCOSE 324 mg/dL (70-100); POTASSIUM 3.9 mEq/L (3.5-5.2); SODIUM 137 mEq/L (134-144)
[2017-03-18] MEDS: LEVOTHYROXINE 112 MCG TAB PO SCH (05:48)
--- NOTE | 2017-03-18 08:06 | SOAPPROG ---
MELISSA Progress Note Assessment/Plan: Assessment/Plan: nondisplaced right distal radius fracture and ulnar styloid fracture HOD#2 - Continue pain management - NWB RUE - Continue PT/OT - SCDs/TEDs for mechanical VTE prophylaxis - Follow-up with Dr. Roman in 1 week for repeat x-rays and evaluation 03/17/17 08:44 03/18/17 08:05 Subjective: Pt states she is having pain in the wrist, but back pain is worse. Pt denies fever, chills, chest pain, SOB, abdominal pain, N/V/D, numbness, tingling, calf pain. Objective: Vital Signs Temp Pulse Resp BP Pulse Ox 35.8 C L 82 16 138/64 H 92 03/18/17 07:38 03/18/17 07:38 03/18/17 07:38 03/18/17 07:38 03/18/17 07:38 Laboratory Results 03/18/17 04:21 03/18/17 04:21 03/17/17 03/18/17 03/19/17 05:59 05:59 05:59 Intake Total 200 Output Total 1000 300 Balance -800 -300 Physical Exam - Physical Exam General Appearance: alert, no apparent distress Cardiac/Chest: normal peripheral pulses Skin: normal color, warm/dry Extremities: normal inspection, normal capillary refill, other (wiggles finger on the R hand well ), No pedal edema, No calf tenderness, No swelling, No Matthew' s sign Neuro/Psych: no motor/sensory deficits, alert, normal mood/affect ICD10 Worksheet Patient Problems: Problems Problem Status Onset Acute renal failure Acute Distal radius fracture, right Acute Fall Acute Hyperglycemia Acute Lumbar compression fracture Acute
[2017-03-18] MEDS: INSULIN LISPRO 100 UNIT/ML SC SCH ×6 (08:28→18:10)
[2017-03-18] MEDS: INSULIN GLARGINE SQ SCH (08:29)
[2017-03-18] MEDS: LIXISENATIDE SQ SCH (08:29)
[2017-03-18] MEDS: traMADol 50 MG TAB PO PRN ×2 (08:30→23:17)
[2017-03-18] MEDS: LOSARTAN/HCTZ 50/12.5 1 TAB PO SCH (08:30)
[2017-03-18] MEDS: METOPROLOL SUCCINATE XR 100 MG TAB PO SCH (08:31)
[2017-03-18] MEDS: POTASSIUM CL 10 MEQ TAB PO SCH (08:31)
[2017-03-18] MEDS: FUROSEMIDE 20 MG TAB PO SCH ×2 (08:31→11:49)
[2017-03-18] MEDS: LIDOCAINE 5% 1 EA PATCH TD SCH (08:32)
--- NOTE | 2017-03-18 08:33 | NEUSURGPN ---
Assessment/Plan: Assessment: 71 yo female that is admitted to IM s/p fall with L1 compression fracture. CT LSpine shows some retropulsion but patient is neuro intact. Pt declines getting MRI imaging at this time. Pt states pain is not alleviated by bracing at this time, pain is worse when weight bearing and midline LBP consistent with findings of location of compression fx. Plan: -PT/OT-CPM -continue trial with Unique brace -defer to ortho for wrist fracture/ortho injuries -If Pt able to get pain controlled with brace and medications then nothing to do from NS standpoint. -If pt does not improve with trial of bracing, NS will likely recommend fusion. -call with any questions or concerns DW Dr. Echeverria Subjective: no pain in legs, no Numbness tingling weakness. Continued severe midline back pain when upright. States the brace doesn't help with the pain that much. She does not want to have an MRI. Objective: VSS, NAD, laying flat in bed AAOx3 PEARLA, EOMI cnii-xii grossly intact MAEx4, 5/5= SILT - Physician Discussed Patient with Dr.: Echeverria Neurosurgery Physical Exam - Vitals, I&O, Labs I and O 03/17/17 03/18/17 03/19/17 05:59 05:59 05:59 Intake Total 200 Output Total 1000 300 Balance -800 -300 Weight 91.172 kg Intake: Oral (ml) 200 Output: Urine (ml) 1000 300 Bedside Commode 1000 300 Other: Number of Voids Bedside Commode 1 Number of Stools Bedside Commode 1 Vital Signs Temp Pulse Resp BP Pulse Ox 35.8 C L 82 16 138/64 H 92 03/18/17 07:38 03/18/17 07:38 03/18/17 07:38 03/18/17 07:38 03/18/17 07:38 Laboratory Results 03/18/17 04:21 03/18/17 04:21 ICD10 Worksheet Patient Problems: Problems Problem Status Onset Acute renal failure Acute Distal radius fracture, right Acute Fall Acute Hyperglycemia Acute Lumbar compression fracture Acute
[2017-03-18] MEDS: TIOTROPIUM INHALER 18 MCG/DOSE 5 DOSE/MDI IH SCH (10:10)
[2017-03-18] MEDS: BUDESONIDE/FORMOTEROL 80/4.5 60 PUFFS/MDI IH SCH ×2 (10:10→21:47)
[2017-03-18] MEDS: VENLAFAXINE XR 75 MG CAP PO SCH (11:49)
--- NOTE | 2017-03-18 12:58 | HOSPPROG ---
Hospitalist Progress Note Assessment/Plan: 71 yo F with PMH of DM, poorly controlled, admitted s/p fall with back pain and distal radial fracture now complicated by AMS. She was noted to have a L1 compression fx. CT of lumbar spine shows some retropulsion. Today is my first encounter w the patient, chart reviewed. # right non displaced distal radial fracture and ulnar styloid fx -splint -NWB #Leukocytosis -ua shows no infectious etiology -will check chest xray #abnormal ECG -reviewed 12 lead which showed Q waves, but is in sinus -will f/u with echo #gait instability with fall -PT and OT recommending SNF # acute encephalopathy -she is better today per nursing staff # back pain, L1 compression fracture -trial of brace, reviewed her care w PT and she has been able to ambulate x 2 today w assist # elsie: 2/2 volume depletion -creat is 1.1 #Constipation -bowel protocol # DM2, poorly controlled, -A1c 11.1, on Lantus and sliding scale (will increase long acting) -ADA diet # copd/chronic hypoxic respiratory failure: at baseline on 3L, stable -she likely has hypoventilatory syndrome due to her obesity # chronic medical issues: htn, obesity (BMI 37), chf, a fib #Plan: likely to go to [facility] tomorrow Subjective: Keri says she is having ongoing back pain. Objective: Vital Signs Temp Pulse Resp BP Pulse Ox 36.8 C 77 16 155/63 H 91 L 03/18/17 10:55 03/18/17 10:55 03/18/17 10:55 03/18/17 10:55 03/18/17 10:55 Laboratory Results 03/18/17 04:21 03/18/17 04:21 03/17/17 03/18/17 03/19/17 05:59 05:59 05:59 Intake Total 200 Output Total 1000 800 Balance -800 -800 - Physical Exam Constitutional: appears nourished, obese, uncomfortable, No not in pain Eyes: PERRL Ears, Nose, Mouth, Throat: hearing normal Cardiovascular: regular rate and rhythym Respiratory: no respiratory distress, reduced air movement (bibasilar) Gastrointestinal: normoactive bowel sounds, other (large and round) Skin: warm Musculoskeletal: generalized weakness Neurologic: AAOx3 Psychiatric: interacting appropriately, not anxious, not encephalopathic, thought process linear ICD10 Worksheet Patient Problems: Problems Problem Status Onset Acute renal failure Acute Distal radius fracture, right Acute Fall Acute Hyperglycemia Acute Lumbar compression fracture Acute
[2017-03-18] MEDS ORDERED: BISACODYL 10 MG SUPP PR PRN (14:54)
[2017-03-18] MEDS ORDERED: LACTULOSE 20 GM/30 ML UDCUP PO PRN (14:54)
[2017-03-18] MEDS: POLYETHYLENE GLYCOL 3350 17 GM PKT PO SCH (15:24)
[2017-03-18] MEDS ORDERED: INSULIN GLARGINE 100 UNITS/ML SYRINGE SC SCH (15:50)
--- NOTE | 2017-03-18 18:38 | ECHO ---
[email or web address] [address] [address] Main: [phone] Fax: Transthoracic Echocardiogram Name: PEGGY BLACKMAN MR#: [id number] Study Date: 03/18/2017 Study Time: 11:33 AM Date of : 1945 Age: 71 year(s) Height: 157.5 cm (62 in.) Weight: 91.17 kg (201 lb.) BSA: 1.92 m2 Gender: Female Examination: Echo Indication: Intermittent somnolence/q waves of EKG Image Quality: Contrast: Requested by: Pat Hernandez BP: 155 mmHg/63 mmHg Heart Rate: Rhythm: Indication: Intermittent somnolence/q waves of EKG Procedure Staff Legal Stenographer: Fabiola Alegre Physician: Ward Garcia Requesting Provider: Conclusions: Normal size left ventricle. Mild concentric LV hypertrophy. Normal global systolic LV function. The ejection fraction is estimated to be 70-75 %. Normal RV function. The left atrium is mildly dilated. No pericardial effusion. Measurements: Chambers Valvular Assessment AV/MV Valvular Assessment TV/PV Normal Normal Normal Name Value Range Name Value Range Name Value Range Ao Pallavi (MM): 3.2 cm (2.2 cm-3.7 AV Vmax: 1.45 m/s (1 m/s-1.7 TR Vmax: 2.77 mm/s ( - ) cm) m/s) TR PGmax: 31 mmHg ( - ) IVSd (2D): 1.4 cm (0.6 cm-1.1 AV maxP mmHg ( - ) syst. PAP: 36 mmHg ( - ) cm) MV E Vmax: 0.56 m/s ( - ) LVDd (2D): 4.7 cm (3.9 cm-5.3 MV A Vmax: 1.12 m/s ( - ) cm) MV E/A: 0.50 ( - ) LVDs (2D): 3.0 cm (2.1 cm-4 cm) LVPWd (2D): 1.1 cm ( - ) LVEF (MOD4): 75 % (>=55 %) EF Range: 70-75 % Continued Measurements: Chambers Valvular Assessment AV/MV Valvular Assessment TV/PV Name Value Name Value Name Value LADs: 4.4 cm MV E' Septal: 0.07 m/s CVP (est.): 5 mmHg LADs Lon.2 cm Patient: PEGGY BLACKMAN Study Date: 03/18/2017 Page 1 of 2 11:33 AM LA Area: 20.0 cm2 MV E/E' Septal: 8.00 MV E/E' Lateral: 10.90 Findings: Left Ventricle: Normal size left ventricle. Mild concentric LV hypertrophy. Normal global systolic LV function. The ejection fraction is estimated to be 70-75 %. No regional wall motion abnormality. Grade 1 diastolic dysfunction (abnormal relaxation). Right Ventricle: Normal size right ventricle. Normal RV function. Left Atrium: The left atrium is mildly dilated. Right Atrium: The right atrium is normal in size. Mitral Valve: The mitral valve is normal in appearance and function. Mild mitral valve regurgitation is present. Aortic Valve: The aortic valve is normal in appearance and function. Tricuspid Valve: The tricuspid valve is normal in appearance and function. Trivial tricuspid valve regurgitation. Pulmonic Valve: Pulmonary valve not well visualized. Aorta: The aorta is normal. Pericardium: No pericardial effusion. There is pericardial fat. (No Signature Object) Patient: PEGGY BLACKMAN Study Date: 03/18/2017 Page 2 of 2 11:33 AM [id number]
[2017-03-18] MEDS: SENNOSIDES/DOCUSATE SODIUM TAB PO SCH (20:22)
[2017-03-18] MEDS: PRAVASTATIN SODIUM 40 MG TAB PO SCH (20:22)
[2017-03-18] MEDS: FERROUS SULFATE 325 MG TAB PO SCH (20:23)
[2017-03-18] MEDS: PATCH REMOVAL 1 EA PATCH TD SCH (20:27)
[2017-03-18] MEDS: HEPARIN 5,000 UNIT/0.5 ML SYR SC SCH (21:35)
[2017-03-18] MEDS: ACETAMN/DIPHENHYDRAMINE 500/25MG TAB PO PRN (23:17)
[2017-03-19] MEDS: HYDROCODONE/APAP 5/325 TAB PO PRN ×4 (01:37→14:28)
[2017-03-19 05:26] LABS: % IMMATURE GRANULYOCYTES 0.5 % (0.0-1.1); ABSOLUTE IMMATURE GRANULOCYTES 0.07 10^3/uL (0.00-0.10); ADD DIFF? NO; ADD MORPH? NO; ADD SCAN? NO; ATYPICAL LYMPHOCYTE FLAG 0 (0-99); FRAGMENT RBC FLAG 0 (0-99); HEMATOCRIT 46.8 % (38.0-47.0); HEMOGLOBIN 15.7 g/dL (12.6-16.3); LEFT SHIFT FLG 0 (0-99); LIPEMIA HEMOLYSIS FLAG 80 (0-99); MEAN CELL HEMOGLOBIN 29.5 pg (27.9-34.1); MEAN CELL HEMOGLOBIN CONCENTR. 33.5 g/dL (32.4-36.7); MEAN CELL VOLUME 87.8 fL (81.5-99.8); MEAN PLATELET VOLUME 10.2 fL (8.7-11.7); PLATELET CLUMPS FLAG 50 (0-99); PLATELET COUNT 250 10^3/uL (150-400); RED BLOOD CELL COUNT 5.33 10^6/uL (4.18-5.33); RED CELL DISTRIBUTION WIDTH 13.6 % (11.5-15.2)
[2017-03-19] MEDS: IPRATROPIUM/ALBUTEROL 3 ML DEYVIAL IH SCH ×4 (05:28→20:41)
[2017-03-19 05:46] LABS: ALANINE AMINOTRANSFERASE 31 IU/L (9-52); ALBUMIN 3.6 g/dL (3.5-5.0); ALKALINE PHOSPHATASE 109 IU/L (38-126); ANION GAP 17 mEq/L (8-16); ASPARTATE AMINOTRANSFERASE 43 IU/L (14-46); CALCIUM 10.8 mg/dL (8.5-10.4); CARBON DIOXIDE 25 mEq/l (22-31); CHLORIDE 96 mEq/L (97-110); CREATININE 1.2 mg/dL (0.6-1.0); GLOMERULAR FILTRATION RATE 44; GLUCOSE 297 mg/dL (70-100); POTASSIUM 4.3 mEq/L (3.5-5.2); SODIUM 138 mEq/L (134-144); TOTAL PROTEIN 7.2 g/dL (6.3-8.2)
[2017-03-19] MEDS: LEVOTHYROXINE 112 MCG TAB PO SCH (05:53)
[2017-03-19] MEDS: HEPARIN 5,000 UNIT/0.5 ML SYR SC SCH ×3 (05:53→21:41)
[2017-03-19 05:55] LABS: SPECIMEN HEMOLYSIS 112
[2017-03-19] MEDS ORDERED: INSULIN GLARGINE 100 UNITS/ML SYRINGE SC SCH (08:41)
[2017-03-19] MEDS: POLYETHYLENE GLYCOL 3350 17 GM PKT PO SCH (09:17)
[2017-03-19] MEDS: LOSARTAN/HCTZ 50/12.5 1 TAB PO SCH (09:17)
[2017-03-19] MEDS: METOPROLOL SUCCINATE XR 100 MG TAB PO SCH (09:17)
[2017-03-19] MEDS: LIDOCAINE 5% 1 EA PATCH TD SCH (09:17)
[2017-03-19] MEDS: FUROSEMIDE 20 MG TAB PO SCH ×2 (09:17→12:47)
[2017-03-19] MEDS: SENNOSIDES/DOCUSATE SODIUM TAB PO SCH ×2 (09:17→21:40)
[2017-03-19] MEDS: POTASSIUM CL 10 MEQ TAB PO SCH (09:17)
[2017-03-19] MEDS: INSULIN LISPRO 100 UNIT/ML SC SCH ×6 (09:19→22:42)
--- NOTE | 2017-03-19 09:22 | SOAPPROG ---
SOAP Progress Note Assessment/Plan: Assessment/Plan: Non-displaced right distal radius fracture and ulnar styloid fracture. HOD#3. Continue pain management NWB RUE Continue PT/OT SCD's and NICOLE's for mechanical VTE Follow up in one week with Dr. Roman to repeat xrays and further evaluation. Subjective: Pt. states that there is no pain when not moving the arm and in the splint, still some pain when moving the arm. No NT of the extremities, No calf pain, swelling. No fevers, DELAROSA, SOB. C/O back pain, being managed by Neurosurgery. Objective: Pt. resting comfortably, in NAD. Pt is NVI in BUE, no calf TTP, no Calf swelling. Plan: 03/19/17 09:19 Objective: Vital Signs Temp Pulse Resp BP Pulse Ox 36.6 C 74 20 158/104 H 92 03/19/17 07:41 03/19/17 07:41 03/19/17 07:41 03/19/17 07:41 03/19/17 07:41 Laboratory Results 03/19/17 05:15 03/19/17 05:15 03/18/17 03/19/17 03/20/17 05:59 05:59 05:59 Intake Total 200 Output Total 1000 1450 Balance -800 -1450 ICD10 Worksheet Patient Problems: Problems Problem Status Onset Acute renal failure Acute Distal radius fracture, right Acute Fall Acute Hyperglycemia Acute Lumbar compression fracture Acute
[2017-03-19] MEDS: TIOTROPIUM INHALER 18 MCG/DOSE 5 DOSE/MDI IH SCH (09:56)
[2017-03-19] MEDS: BUDESONIDE/FORMOTEROL 80/4.5 60 PUFFS/MDI IH SCH ×2 (09:57→20:40)
--- NOTE | 2017-03-19 10:58 | ASMTCMCOM ---
CM Note CM Note Notes: Spoke with ADRIANO Patterson, patient has elevated BP and glucose today and is not appropriate for discharge. I called Jimena at [facility] to give her update, also sent updated notes/PASRR. Current Discharge plan: [facility] Date Signed: 03/19/2017 10:58 AM Electronically Signed By:Rosa Benitez RN
[2017-03-19] MEDS: VENLAFAXINE XR 75 MG CAP PO SCH (12:47)
[2017-03-19] MEDS: traMADol 50 MG TAB PO PRN ×2 (12:47→21:40)
--- NOTE | 2017-03-19 13:11 | NEUSURGPN ---
Assessment/Plan: Assessment/Plan: Assessment: 71 yo female that is admitted to IM s/p fall with L1 compression fracture. CT LSpine shows some retropulsion but patient is neuro intact. Pt declines getting MRI imaging at this time. Plan: -PT/OT-CPM -continue trial with Unique brace- pain has gotten somewhat better today than yesterday and has been up more this morning. She is tolerating the brace better today than yesterday -defer to ortho for wrist fracture/ortho injuries -If Pt able to get pain controlled with brace and medications then nothing to do from NS standpoint. -If pt does not improve with trial of bracing, NS will likely recommend fusion but given she is having some progress today, we would like to give her some more time to see if she can heal in the brace as opposed to surgery. She agrees with this plan -call with any questions or concerns DW Dr. Echeverria Subjective: no pain in legs, no Numbness tingling weakness. Continued pain in her back but is somewhat better than it was yesterday and was able to get up three times to the chair this morning and walk a little. Objective: VSS, NAD, laying flat in bed AAOx3 PEARLA, EOMI cnii-xii grossly intact MAEx4, 5/5= SILT - Physician Discussed Patient with : Juwan Neurosurgery Physical Exam - Vitals, I&O, Labs I and O 03/18/17 03/19/17 03/20/17 05:59 05:59 05:59 Intake Total 200 Output Total 1000 1450 Balance -800 -1450 Weight 91.172 kg 90.5 kg Intake: Oral (ml) 200 Output: Urine (ml) 1000 1450 Bedside Commode 1000 1450 Other: Number of Voids Bedside Commode 1 2 Number of Stools Bedside Commode 1 Vital Signs Temp Pulse Resp BP Pulse Ox 36.6 C 74 20 154/90 H 94 03/19/17 07:41 03/19/17 12:00 03/19/17 12:00 03/19/17 12:00 03/19/17 12:00 Laboratory Results 03/19/17 05:15 03/19/17 05:15 ICD10 Worksheet Patient Problems: Problems Problem Status Onset Acute renal failure Acute Distal radius fracture, right Acute Fall Acute Hyperglycemia Acute Lumbar compression fracture Acute
--- NOTE | 2017-03-19 15:06 | ASMTCMCOM ---
CM Note CM Note Notes: [facility] for [facility] Date Signed: 03/19/2017 03:06 PM Electronically Signed By:JAYLEEN Diaz
--- NOTE | 2017-03-19 15:35 | HOSPPROG ---
Hospitalist Progress Note Assessment/Plan: 71 yo F with PMH of DM, poorly controlled, admitted s/p fall with back pain and distal radial fracture now complicated by AMS. She was noted to have a L1 compression fx. CT of lumbar spine shows some retropulsion. # right non displaced distal radial fracture and ulnar styloid fx -splint -NWB #pain due to the above -on norco, increased gabapentin to tid #Leukocytosis -ua shows no infectious etiology -chest xray shows nothing acute, possible bronchitis, afebrile, not coughing #abnormal ECG -reviewed 12 lead which showed Q waves, but is in sinus -echo shows LVH, no regional wall abnormalities #gait instability with fall -PT and OT recommending SNF # acute encephalopathy -she is better today # back pain, L1 compression fracture -trial of brace, reviewed her care w PT and she has been able to ambulate x 2 today w assist -said brace helped her # elsie: 2/2 volume depletion -creat is 1.2 #Constipation -bowel protocol # DM2, poorly controlled, -A1c 11.1, on Lantus and sliding scale (will increase long acting again today) -ADA diet # copd/chronic hypoxic respiratory failure: at baseline on 3L, stable -she likely has hypoventilatory syndrome due to her obesity # chronic medical issues: htn, obesity (BMI 37), chf, a fib #Plan: likely to go to [facility] soon if no surgery Subjective: Keri said she is having ongoing pain but was able to get oob x 2 today. Objective: Vital Signs Temp Pulse Resp BP Pulse Ox 36.6 C 74 20 154/90 H 94 03/19/17 07:41 03/19/17 12:00 03/19/17 12:00 03/19/17 12:00 03/19/17 12:00 Laboratory Results 03/19/17 05:15 03/19/17 05:15 03/18/17 03/19/17 03/20/17 05:59 05:59 05:59 Intake Total 200 Output Total 1000 1450 Balance -800 -1450 - Physical Exam Constitutional: chronically ill appearing, obese, uncomfortable Eyes: PERRL Ears, Nose, Mouth, Throat: hearing normal Cardiovascular: regular rate and rhythym Respiratory: no respiratory distress, reduced air movement Skin: warm Musculoskeletal: generalized weakness Neurologic: AAOx3 Psychiatric: interacting appropriately ICD10 Worksheet Patient Problems: Problems Problem Status Onset Acute renal failure Acute Distal radius fracture, right Acute Fall Acute Hyperglycemia Acute Lumbar compression fracture Acute
[2017-03-19] MEDS: GABAPENTIN 100 MG CAP PO SCH ×2 (16:56→21:40)
[2017-03-19] MEDS: HYDROCODONE/APAP 10/325 TAB PO PRN (18:38)
[2017-03-19] MEDS: PRAVASTATIN SODIUM 40 MG TAB PO SCH (21:40)
[2017-03-19] MEDS: FERROUS SULFATE 325 MG TAB PO SCH (21:40)
[2017-03-19] MEDS: MELATONIN 3 MG TAB PO SCH (21:40)
[2017-03-19] MEDS: hydrALAZINE 10 MG TAB PO PRN (21:40)
[2017-03-19] MEDS: PATCH REMOVAL 1 EA PATCH TD SCH (21:41)
[2017-03-20] MEDS: HYDROCODONE/APAP 10/325 TAB PO PRN ×3 (01:32→20:24)
[2017-03-20] MEDS: hydrALAZINE 10 MG TAB PO PRN (03:34)
[2017-03-20 04:32] LABS: % IMMATURE GRANULYOCYTES 0.5 % (0.0-1.1); ABSOLUTE IMMATURE GRANULOCYTES 0.09 10^3/uL (0.00-0.10); ADD DIFF? NO; ADD MORPH? NO; ADD SCAN? NO; ATYPICAL LYMPHOCYTE FLAG 0 (0-99); FRAGMENT RBC FLAG 0 (0-99); HEMATOCRIT 47.2 % (38.0-47.0); HEMOGLOBIN 15.3 g/dL (12.6-16.3); LEFT SHIFT FLG 0 (0-99); LIPEMIA HEMOLYSIS FLAG 80 (0-99); MEAN CELL HEMOGLOBIN 28.3 pg (27.9-34.1); MEAN CELL HEMOGLOBIN CONCENTR. 32.4 g/dL (32.4-36.7); MEAN CELL VOLUME 87.4 fL (81.5-99.8); MEAN PLATELET VOLUME 10.3 fL (8.7-11.7); PLATELET CLUMPS FLAG 0 (0-99); PLATELET COUNT 314 10^3/uL (150-400); RED CELL DISTRIBUTION WIDTH 13.7 % (11.5-15.2)
[2017-03-20 04:37] LABS: ANION GAP 13 mEq/L (8-16); CALCIUM 10.6 mg/dL (8.5-10.4); CARBON DIOXIDE 28 mEq/l (22-31); CHLORIDE 96 mEq/L (97-110); CREATININE 1.3 mg/dL (0.6-1.0); GLOMERULAR FILTRATION RATE 40; GLUCOSE 258 mg/dL (70-100); POTASSIUM 3.8 mEq/L (3.5-5.2); SODIUM 137 mEq/L (134-144)
[2017-03-20] MEDS: IPRATROPIUM/ALBUTEROL 3 ML DEYVIAL IH SCH ×4 (06:00→20:55)
[2017-03-20] MEDS: traMADol 50 MG TAB PO PRN ×3 (06:29→23:52)
[2017-03-20] MEDS: LEVOTHYROXINE 112 MCG TAB PO SCH (06:29)
[2017-03-20] MEDS: HEPARIN 5,000 UNIT/0.5 ML SYR SC SCH ×3 (06:29→21:48)
--- NOTE | 2017-03-20 07:37 | NEUSURGPN ---
Assessment/Plan: Assessment: 71 yo female that is admitted to IM s/p fall with L1 compression fracture. CT LSpine shows some retropulsion but patient is neuro intact. Pt declines getting MRI imaging at this time. Plan: -PT/OT-CPM -continue with [place] brace-Patient is sitting in the chair this morning and OOB. Discussed options with patient (T12-L2 PSF for stabilization vs continued bracing). Patient states she is tolerating the brace okay, still has some pain in bed but does not want surgery. -defer to ortho for wrist fracture/ortho injuries -Dispo planning per trauma/medicine. Will s/o if patient doing well with brace. She should continue brace whenever OOB. Follow up in 4 weeks with new xrays of the lumbar spine. -Please notify NS with any change in neuro/motor exam DW Dr. Echeverria Subjective: back pain, worse in bed. Denies any new leg pain Objective: NAD A&Ox3 MAEx4 5/5 and equal in BLE. Sensation intact - Physician Discussed Patient with Dr.: Echeverria Neurosurgery Physical Exam - Vitals, I&O, Labs I and O 03/19/17 03/20/17 03/21/17 05:59 05:59 05:59 Intake Total 350 Output Total 1450 700 Balance -1450 -350 Weight 91.172 kg 90.5 kg 91.56 kg Intake: Oral (ml) 350 Output: Urine (ml) 1450 700 Bedside Commode 1450 700 Other: Number of Voids Bedside Commode 2 Toilet 1 1 Vital Signs Temp Pulse Resp BP Pulse Ox 36.9 C 69 17 125/84 H 91 L 03/20/17 03:25 03/20/17 06:01 03/20/17 06:01 03/20/17 06:28 03/20/17 06:01 Laboratory Results 03/20/17 04:12 03/20/17 04:12 ICD10 Worksheet Patient Problems: Problems Problem Status Onset Acute renal failure Acute Distal radius fracture, right Acute Fall Acute Hyperglycemia Acute Lumbar compression fracture Acute
[2017-03-20] MEDS: METOPROLOL SUCCINATE XR 100 MG TAB PO SCH (08:08)
[2017-03-20] MEDS: SENNOSIDES/DOCUSATE SODIUM TAB PO SCH ×2 (08:09→21:51)
[2017-03-20] MEDS: POLYETHYLENE GLYCOL 3350 17 GM PKT PO SCH (08:10)
[2017-03-20] MEDS: FUROSEMIDE 20 MG TAB PO SCH ×2 (08:10→12:11)
[2017-03-20] MEDS: POTASSIUM CL 10 MEQ TAB PO SCH (08:10)
[2017-03-20] MEDS: GABAPENTIN 100 MG CAP PO SCH ×3 (08:10→21:48)
[2017-03-20] MEDS: INSULIN LISPRO 100 UNIT/ML SC SCH ×6 (08:11→17:56)
[2017-03-20] MEDS: LIDOCAINE 5% 1 EA PATCH TD SCH (08:12)
--- NOTE | 2017-03-20 09:19 | SOAPPROG ---
SOAP Progress Note Assessment/Plan: Assessment/Plan: nondisplaced right distal radius fracture and ulnar styloid fracture HOD#4 - Continue pain management - NWB RUE - Continue PT/OT - SCDs/TEDs for mechanical VTE prophylaxis - Follow-up with Dr. Roman in 1 week for repeat x-rays and evaluation - Discharge to SNF when cleared by neuro and medicine team 03/17/17 08:44 03/18/17 08:05 03/20/17 09:17 Subjective: Pt states she is mobilizing better, and pain is minimal. Pt denies fever, chills , chest pain, SOB, abdominal pain, N/V/D, numbness, tingling and calf pain. Objective: Vital Signs Temp Pulse Resp BP Pulse Ox 36.9 C 65 17 113/68 91 L 03/20/17 03:25 03/20/17 08:08 03/20/17 06:01 03/20/17 08:09 03/20/17 06:01 Laboratory Results 03/20/17 04:12 03/20/17 04:12 03/19/17 03/20/17 03/21/17 05:59 05:59 05:59 Intake Total 350 Output Total 1450 700 Balance -1450 -350 Physical Exam - Physical Exam General Appearance: alert, no apparent distress Cardiac/Chest: normal peripheral pulses Skin: normal color, warm/dry Extremities: normal inspection, normal capillary refill, other (moves fingers well), No pedal edema, No calf tenderness, No swelling, No Matthew's sign Neuro/Psych: no motor/sensory deficits, alert ICD10 Worksheet Patient Problems: Problems Problem Status Onset Acute renal failure Acute Distal radius fracture, right Acute Fall Acute Hyperglycemia Acute Lumbar compression fracture Acute
--- NOTE | 2017-03-20 09:44 | HOSPPROG ---
Hospitalist Progress Note Assessment/Plan: 71 yo F with PMH of DM, poorly controlled, admitted s/p fall with back pain and distal radial fracture now complicated by AMS. She was noted to have a L1 compression fx. CT of lumbar spine shows some retropulsion. # right non displaced distal radial fracture and ulnar styloid fx -splint -NWB #pain due to the above -on norco, increased gabapentin to tid, trial of Voltaren cream #Leukocytosis -ua shows no infectious etiology -2 view chest xray shows no acute process #abnormal ECG -reviewed 12 lead which showed Q waves, but is in sinus -echo shows LVH, no regional wall abnormalities #gait instability with fall -PT and OT recommending SNF # acute encephalopathy -she is better today # back pain, L1 compression fracture -trial of brace, reviewed her care w PT and she has been able to ambulate x 2 today w assist -said brace helped her # elsie: 2/2 volume depletion -creat is 1.3 #Constipation -bowel protocol # DM2, poorly controlled, -A1c 11.1, on Lantus and sliding scale -ADA diet # copd/chronic hypoxic respiratory failure: at baseline on 3L, stable -she likely has hypoventilatory syndrome due to her obesity # chronic medical issues: htn, obesity (BMI 37), chf, a fib #Plan: if stable, will dc in the morning Subjective: Keri doesn't like wearing the brace. Pain is better when up in the chair, worse in the bed. Objective: Vital Signs Temp Pulse Resp BP Pulse Ox 36.9 C 65 17 113/68 91 L 03/20/17 03:25 03/20/17 08:08 03/20/17 06:01 03/20/17 08:09 03/20/17 06:01 Laboratory Results 03/20/17 04:12 03/20/17 04:12 03/19/17 03/20/17 03/21/17 05:59 05:59 05:59 Intake Total 350 240 Output Total 1450 700 Balance -1450 -350 240 - Physical Exam Constitutional: chronically ill appearing, obese, uncomfortable Eyes: PERRL Ears, Nose, Mouth, Throat: hearing normal Cardiovascular: regular rate and rhythym Respiratory: no respiratory distress, reduced air movement (bibasilar) Skin: warm Musculoskeletal: generalized weakness Neurologic: AAOx3 Psychiatric: interacting appropriately, not anxious, not encephalopathic ICD10 Worksheet Patient Problems: Problems Problem Status Onset Acute renal failure Acute Distal radius fracture, right Acute Fall Acute Hyperglycemia Acute Lumbar compression fracture Acute
[2017-03-20] MEDS: TIOTROPIUM INHALER 18 MCG/DOSE 5 DOSE/MDI IH SCH (10:15)
[2017-03-20] MEDS: BUDESONIDE/FORMOTEROL 80/4.5 60 PUFFS/MDI IH SCH ×2 (10:15→20:55)
[2017-03-20] MEDS: LOSARTAN/HCTZ 50/12.5 1 TAB PO SCH (10:23)
[2017-03-20] MEDS: VENLAFAXINE XR 75 MG CAP PO SCH (12:11)
--- NOTE | 2017-03-20 14:04 | ASMTCMCOM ---
CM Note CM Note Notes: Pt not ready for d/c today, updated Janina Whiting at [facility] and she confirmed insurance is still authorized so pt would be able to d/c over the weekend if medically stable. D/c plan of care: [facility] when medically stable. Date Signed: 03/20/2017 02:04 PM Electronically Signed By:JAYLEEN Diaz
[2017-03-20] MEDS: DICLOFENAC SODIUM 1% 100 GM GEL TP SCH ×3 (17:02→21:47)
[2017-03-20] MEDS: FERROUS SULFATE 325 MG TAB PO SCH (21:48)
[2017-03-20] MEDS: INSULIN GLARGINE 100 UNITS/ML SYRINGE SC SCH (21:49)
[2017-03-20] MEDS: PRAVASTATIN SODIUM 40 MG TAB PO SCH (21:50)
[2017-03-20] MEDS: MELATONIN 3 MG TAB PO SCH (21:50)
[2017-03-20] MEDS: PATCH REMOVAL 1 EA PATCH TD SCH (21:50)
[2017-03-21] MEDS: DICLOFENAC SODIUM 1% 100 GM GEL TP SCH ×5 (04:49→21:05)
[2017-03-21] MEDS: LEVOTHYROXINE 112 MCG TAB PO SCH (04:50)
[2017-03-21] MEDS: HYDROCODONE/APAP 10/325 TAB PO PRN ×3 (04:50→21:17)
[2017-03-21] MEDS: HEPARIN 5,000 UNIT/0.5 ML SYR SC SCH ×3 (04:51→21:05)
[2017-03-21] MEDS: IPRATROPIUM/ALBUTEROL 3 ML DEYVIAL IH SCH ×4 (05:20→22:35)
[2017-03-21 06:14] LABS: % IMMATURE GRANULYOCYTES 0.8 % (0.0-1.1); ABSOLUTE IMMATURE GRANULOCYTES 0.13 10^3/uL (0.00-0.10); ADD DIFF? NO; ADD MORPH? NO; ADD SCAN? NO; ATYPICAL LYMPHOCYTE FLAG 0 (0-99); FRAGMENT RBC FLAG 0 (0-99); HEMATOCRIT 43.8 % (38.0-47.0); HEMOGLOBIN 14.5 g/dL (12.6-16.3); LEFT SHIFT FLG 10 (0-99); LIPEMIA HEMOLYSIS FLAG 80 (0-99); MEAN CELL HEMOGLOBIN CONCENTR. 33.1 g/dL (32.4-36.7); MEAN CELL VOLUME 87.6 fL (81.5-99.8); MEAN PLATELET VOLUME 10.3 fL (8.7-11.7); PLATELET CLUMPS FLAG 0 (0-99); PLATELET COUNT 366 10^3/uL (150-400); RED CELL DISTRIBUTION WIDTH 13.8 % (11.5-15.2)
[2017-03-21 06:28] LABS: ANION GAP 13 mEq/L (8-16); CALCIUM 10.3 mg/dL (8.5-10.4); CARBON DIOXIDE 28 mEq/l (22-31); CHLORIDE 92 mEq/L (97-110); CREATININE 2.1 mg/dL (0.6-1.0); GLOMERULAR FILTRATION RATE 23; GLUCOSE 166 mg/dL (70-100); SODIUM 133 mEq/L (134-144)
[2017-03-21] MEDS ORDERED: NS 250 ML IV ONE (07:51)
--- NOTE | 2017-03-21 08:21 | HOSPPROG ---
Hospitalist Progress Note Assessment/Plan: 71 yo F with PMH of DM, poorly controlled, admitted s/p fall with back pain and distal radial fracture now complicated by AMS. She was noted to have a L1 compression fx. CT of lumbar spine shows some retropulsion. # right non displaced distal radial fracture and ulnar styloid fx -splint -NWB #pain due to the above -on norco, increased gabapentin to tid, trial of Voltaren cream #Leukocytosis -ua shows no infectious etiology -2 view chest xray shows no acute process #abnormal ECG -reviewed 12 lead which showed Q waves, but is in sinus -echo shows LVH, no regional wall abnormalities #gait instability with fall -PT and OT recommending SNF # acute encephalopathy -resolved # back pain, L1 compression fracture -at times the brace helps her, and other times she feels worse w it on. # elsie: 2/2 volume depletion -creat is 2.1 -will hydrate overnight -hold lasix and ARB, avoid nephrotoxic medications #Constipation -bowel protocol # DM2, poorly controlled, -A1c 11.1, on Lantus and sliding scale -ADA diet -glucose better this morning # copd/chronic hypoxic respiratory failure: at baseline on 3L, stable -she likely has hypoventilatory syndrome due to her obesity # chronic medical issues: htn, obesity (BMI 37), chf, a fib #Plan: if better tomorrow, will dc. Subjective: Keri is up in the chair and says her pain is a "6". Doesn't like wearing the brace and feels it is making the pain worse today. Objective: Vital Signs Temp Pulse Resp BP Pulse Ox 36.9 C 66 18 136/63 H 91 L 03/20/17 23:16 03/21/17 05:23 03/21/17 05:23 03/20/17 23:16 03/21/17 05:23 Laboratory Results 03/21/17 05:57 03/21/17 05:57 03/20/17 03/21/17 03/22/17 05:59 05:59 05:59 Intake Total 350 1240 Output Total 700 Balance -350 1240 - Physical Exam Constitutional: chronically ill appearing, obese, uncomfortable Eyes: PERRL Ears, Nose, Mouth, Throat: hearing normal, oral thrush Respiratory: no respiratory distress, reduced air movement Skin: warm Musculoskeletal: generalized weakness Neurologic: AAOx3 Psychiatric: interacting appropriately, not anxious ICD10 Worksheet Patient Problems: Problems Problem Status Onset Acute renal failure Acute Distal radius fracture, right Acute Fall Acute Hyperglycemia Acute Lumbar compression fracture Acute
[2017-03-21] MEDS: LIDOCAINE 5% 1 EA PATCH TD SCH (09:01)
[2017-03-21] MEDS: METOPROLOL SUCCINATE XR 100 MG TAB PO SCH (09:02)
[2017-03-21] MEDS: SENNOSIDES/DOCUSATE SODIUM TAB PO SCH ×2 (09:02→21:06)
[2017-03-21] MEDS: POLYETHYLENE GLYCOL 3350 17 GM PKT PO SCH (09:04)
[2017-03-21] MEDS: POTASSIUM CL 10 MEQ TAB PO SCH (09:04)
[2017-03-21] MEDS: INSULIN LISPRO 100 UNIT/ML SC SCH ×6 (09:09→17:57)
[2017-03-21] MEDS: traMADol 50 MG TAB PO PRN ×2 (09:41→23:47)
[2017-03-21] MEDS: VENLAFAXINE XR 75 MG CAP PO SCH (11:57)
--- NOTE | 2017-03-21 12:35 | SOAPPROG ---
SOAP Progress Note Assessment/Plan: Assessment/Plan: nondisplaced right distal radius fracture and ulnar styloid fracture HOD#5 - Continue pain management - NWB RUE - Continue PT/OT - SCDs/TEDs for mechanical VTE prophylaxis - Follow-up with Dr. Roman in 1 week for repeat x-rays and evaluation - Discharge to SNF when cleared by neuro and medicine team 03/17/17 08:44 03/18/17 08:05 03/20/17 09:17 03/21/17 12:33 Subjective: Pt states she is not having any pain in the R wrist. Pt denies fever, chills, chest pain, SOB, abdominal pain, N/V/D, numbness, tingling, calf pain. Objective: Vital Signs Temp Pulse Resp BP Pulse Ox 36.8 C 70 16 145/82 H 88 L 03/21/17 08:00 03/21/17 09:02 03/21/17 08:00 03/21/17 09:02 03/21/17 08:00 Laboratory Results 03/21/17 05:57 03/21/17 05:57 03/20/17 03/21/17 03/22/17 05:59 05:59 05:59 Intake Total 350 1240 Output Total 700 Balance -350 1240 Physical Exam - Physical Exam General Appearance: alert, no apparent distress Cardiac/Chest: normal peripheral pulses Skin: normal color, warm/dry Extremities: normal inspection, normal capillary refill, other (splint intact RUE), No pedal edema, No calf tenderness, No swelling, No Matthew's sign Neuro/Psych: no motor/sensory deficits, alert, normal mood/affect, oriented x 3 ICD10 Worksheet Patient Problems: Problems Problem Status Onset Acute renal failure Acute Distal radius fracture, right Acute Fall Acute Hyperglycemia Acute Lumbar compression fracture Acute
[2017-03-21] MEDS ORDERED: NS 500 ML IV SCH (12:45)
[2017-03-21] MEDS: TIOTROPIUM INHALER 18 MCG/DOSE 5 DOSE/MDI IH SCH (13:27)
[2017-03-21] MEDS: BUDESONIDE/FORMOTEROL 80/4.5 60 PUFFS/MDI IH SCH ×2 (13:30→22:34)
[2017-03-21] MEDS: PRAVASTATIN SODIUM 40 MG TAB PO SCH (21:05)
[2017-03-21] MEDS: INSULIN GLARGINE 100 UNITS/ML SYRINGE SC SCH (21:05)
[2017-03-21] MEDS: MELATONIN 3 MG TAB PO SCH (21:06)
[2017-03-21] MEDS: FERROUS SULFATE 325 MG TAB PO SCH (21:06)
[2017-03-21] MEDS: PATCH REMOVAL 1 EA PATCH TD SCH (21:18)
[2017-03-21 23:20] VITALS: TEMP 97.6
[2017-03-22] MEDS: HYDROCODONE/APAP 10/325 TAB PO PRN ×2 (03:13→09:13)
[2017-03-22 05:11] LABS: ANION GAP 11 mEq/L (8-16); CALCIUM 10.2 mg/dL (8.5-10.4); CARBON DIOXIDE 27 mEq/l (22-31); CHLORIDE 98 mEq/L (97-110); CREATININE 1.5 mg/dL (0.6-1.0); GLOMERULAR FILTRATION RATE 34; GLUCOSE 147 mg/dL (70-100); POTASSIUM 4.1 mEq/L (3.5-5.2); SODIUM 136 mEq/L (134-144)
[2017-03-22] MEDS: LEVOTHYROXINE 112 MCG TAB PO SCH (06:15)
[2017-03-22] MEDS: traMADol 50 MG TAB PO PRN ×2 (06:15→12:34)
[2017-03-22] MEDS: HEPARIN 5,000 UNIT/0.5 ML SYR SC SCH (06:15)
[2017-03-22] MEDS: DICLOFENAC SODIUM 1% 100 GM GEL TP SCH ×2 (06:16→11:35)
[2017-03-22 07:20] VITALS: BP 149/74; RESP 16
[2017-03-22] MEDS: IPRATROPIUM/ALBUTEROL 3 ML DEYVIAL IH SCH ×2 (07:56→07:59)
[2017-03-22] MEDS: TIOTROPIUM INHALER 18 MCG/DOSE 5 DOSE/MDI IH SCH (07:59)
[2017-03-22] MEDS: BUDESONIDE/FORMOTEROL 80/4.5 60 PUFFS/MDI IH SCH (08:00)
[2017-03-22] MEDS: INSULIN LISPRO 100 UNIT/ML SC SCH ×4 (08:04→11:33)
[2017-03-22 08:09] VITALS: PULSE 64; O2SAT 95
[2017-03-22] MEDS: SENNOSIDES/DOCUSATE SODIUM TAB PO SCH (09:13)
[2017-03-22] MEDS: LIDOCAINE 5% 1 EA PATCH TD SCH (09:14)
[2017-03-22] MEDS: METOPROLOL SUCCINATE XR 100 MG TAB PO SCH (09:14)
[2017-03-22] MEDS: POLYETHYLENE GLYCOL 3350 17 GM PKT PO SCH (09:20)
--- NOTE | 2017-03-22 11:00 | HOSPPROG ---
Hospitalist Progress Note Assessment/Plan: 71 yo F with PMH of DM, poorly controlled, admitted s/p fall with back pain and distal radial fracture now complicated by AMS. She was noted to have a L1 compression fx. CT of lumbar spine shows some retropulsion. # right non displaced distal radial fracture and ulnar styloid fx -splint -NWB -f/u with Dr Roman in one week #pain due to the above -on norco, increased gabapentin to tid, trial of Voltaren cream #Leukocytosis -ua shows no infectious etiology -2 view chest xray shows no acute process #abnormal ECG -reviewed 12 lead which showed Q waves, but is in sinus -echo shows LVH, no regional wall abnormalities #gait instability with fall -PT and OT recommending SNF # acute encephalopathy -resolved # back pain, L1 compression fracture -at times the brace helps her, and other times she feels worse w it on. -pain is better today # elsie: 2/2 volume depletion -creat is 1.5 -will hydrate overnight -hold lasix and ARB, avoid nephrotoxic medications #Constipation -bowel protocol # DM2, poorly controlled, -A1c 11.1, on Lantus and sliding scale -ADA diet -glucose better this morning # copd/chronic hypoxic respiratory failure: at baseline on 3L, stable -she likely has hypoventilatory syndrome due to her obesity # chronic medical issues: htn, obesity (BMI 37), chf, a fib #Plan: dc Subjective: Keri said her pain is finally better today. Objective: Vital Signs Temp Pulse Resp BP Pulse Ox 36.4 C 64 16 149/74 H 95 03/22/17 07:19 03/22/17 08:02 03/22/17 08:02 03/22/17 07:19 03/22/17 08:02 Laboratory Results 03/21/17 05:57 03/22/17 04:21 03/21/17 03/22/17 03/23/17 05:59 05:59 05:59 Intake Total 1240 950 Balance 1240 950 - Physical Exam Constitutional: not in pain, chronically ill appearing, obese Eyes: PERRL Ears, Nose, Mouth, Throat: hearing normal Cardiovascular: regular rate and rhythym Respiratory: no respiratory distress, reduced air movement Gastrointestinal: normoactive bowel sounds Skin: warm Musculoskeletal: generalized weakness Neurologic: AAOx3 Psychiatric: interacting appropriately, not anxious ICD10 Worksheet Patient Problems: Problems Problem Status Onset Acute renal failure Acute Distal radius fracture, right Acute Fall Acute Hyperglycemia Acute Lumbar compression fracture Acute
--- NOTE | 2017-03-22 11:20 | PDIAF ---
- Diagnosis Diagnosis: R nondisplaced radial fx, ulnar fx, L1 compression fx, renal insuff, DM 2 Code Status: Full Code - Medication Management Discharge Medications: Medications to Continue on Transfer Acetaminophen [Tylenol ES 500 mg (*)] 1,000 mg PO Q6 PRN 03/16/17 [Last Taken ] Apixaban [Eliquis] 5 mg PO BID 03/16/17 [Last Taken 03/15/17 21:00] Budesonide/Formoterol 80/4.5 [Symbicort 80-4.5 Mcg Inhaler] 2 puffs IH BID 03/16 [Last Taken 03/15/17 21:00] Ferrous Sulfate [Ferrous Sulf 325 MG (*)] 325 mg PO HS 03/16/17 [Last Taken ] Furosemide [Lasix 20 MG (*)] 20 mg PO BID@03/16/17 [Last Taken 03/15/17 12 :00] Insulin Lispro [Humalog Kwikpen U-100] 13 unit SQ TIDMEAL 03/16/17 [Last Taken Unknown] Levothyroxine [Synthroid 112 mcg (*)] 112 mcg PO DAILY06 03/16/17 [Last Taken ] Losartan/Hctz 50/12.5 [Hyzaar 50/12.5MG (*)] 1 tab PO DAILY 03/16/17 [Last Taken 03/15/17] Metoprolol Succinate Xr [Toprol Xl 100 mg (*)] 200 mg PO DAILY 03/16/17 [Last Taken Unknown] Potassium Cl [Klor-Con 10 meq (RX)] 10 meq PO DAILY 03/16/17 [Last Taken ] Pravastatin Sodium 80 mg PO HS 03/16/17 [Last Taken 03/15/17] Tiotropium Inhaler [Spiriva Inhaler (RX)] 1 inh IH DAILY 03/16/17 [Last Taken ] Venlafaxine Xr [Effexor Xr 75MG (*)] 150 mg PO DAILY@12 03/16/17 [Last Taken ] amLODIPine BESYLATE [Norvasc 10 mg (*)] 10 mg PO DAILY 03/16/17 [Last Taken ] diphenhydrAMINE [Benadryl Cream] 1 chava TP HS PRN 03/16/17 [Last Taken 03/15/17] Diclofenac Sodium 1% [Voltaren Gel (*)] 2 gm TP QID gel 03/22/17 [Last Taken Unknown] Gabapentin [Neurontin 100 MG (*)] 100 mg PO TID cap 03/22/17 [Last Taken Unknown] HYDROcodone/APAP 10/325 [[place] 10/325 (*)] 1 tab PO Q6HRS PRN tab 03/22/17 [ Last Taken Unknown] Insulin Glargine [Lantus 100 UNITS/ML (*)] 25 units SC HS ml 03/22/17 [Last Taken Unknown] Melatonin [Melatonin 3 MG (*)] 3 mg PO HS tab 03/22/17 [Last Taken Unknown] Polyethylene Glycol 3350 [Miralax 17 gm (*)] 17 gm PO DAILY pkt 03/22/17 [Last Taken Unknown] Sennosides/Docusate Sodium [Senokot-S] 1 - 2 tab PO BID tab 03/22/17 [Last Taken Unknown] traMADol [Ultram 50 mg (*)] 50 mg PO Q6HRS PRN tab 03/22/17 [Last Taken Unknown ] Discharge Medications: Refer to the Discharge Home Medication list for PRN reason. - Orders Services needed: Physical Therapy, Occupational Therapy Diet Recommendation: ADA 1800 consistent carb Diet Texture: Regular Texture Diet Activity/Weight Bearing Restrictions: Orthopedics: - Splint to stay clean, dry , and intact; cover for bathing. - Non weight bearing right upper extremity. - Continue ice and elevation for swelling and pain relief. - Call the office with any questions or concerns. - Avoid NSAIDs, including ibuprofen. -See Dr Roman in one week. -wear brace when oob, ok to be off when in bed Additional: LASIX AND LOSARTAN/HCTZ HAVE BEEN ON HOLD DUE TO ELEVATED CREAT. HER KIDNEY FUNCTION IMPROVED WHILE HOLDING. DO NOT RESUME UNTIL LABS ARE CHECKED ON 03/24 TO BE SURE SHE IS STABLE. - Labs/Radiology BMP Date: 03/24/17 (q 3days) CBC w/diff Date: 03/14/17 (weekly) - Follow Up Care Current Providers and Referrals: UNKNOWN, [Other] Maurice Echeverria MD [Medical Doctor] - (wear back brace when out of bed. follow up in 4 weeks with neurosurg, with new x-rays of the lumbar spine. call to schedule appointment) Mateus Roman MD [Medical Doctor] - (Call the office to schedule a follow- up visit, 7-10 days from date of injury. )
[2017-03-22] MEDS: VENLAFAXINE XR 75 MG CAP PO SCH (11:32)
--- NOTE | 2017-03-22 12:00 | SOAPPROG ---
[facility] Progress Note Assessment/Plan: Assessment/Plan: nondisplaced right distal radius fracture and ulnar styloid fracture HOD#6 - Continue pain management - NWB RUE - Continue PT/OT - SCDs/TEDs for mechanical VTE prophylaxis - Follow-up with Dr. Roman in 1 week for repeat x-rays and evaluation - Discharge to SNF when cleared by neuro and medicine team 03/17/17 08:44 03/18/17 08:05 03/20/17 09:17 03/21/17 12:33 03/22/17 11:59 Subjective: Pt states she is doing well, minimal pain. Pt denies fever, chills, chest pain, SOB, abdominal pain, N/V/D, numbness, tingling and calf pain. Objective: Vital Signs Temp Pulse Resp BP Pulse Ox 36.4 C 64 16 149/74 H 95 03/22/17 07:19 03/22/17 08:02 03/22/17 08:02 03/22/17 07:19 03/22/17 08:02 Laboratory Results 03/21/17 05:57 03/22/17 04:21 03/21/17 03/22/17 03/23/17 05:59 05:59 05:59 Intake Total 1240 950 Balance 1240 950 Physical Exam - Physical Exam General Appearance: alert, no apparent distress Cardiac/Chest: normal peripheral pulses Skin: normal color, warm/dry Extremities: normal inspection, normal capillary refill, other (splint intact RUE), No pedal edema, No calf tenderness, No swelling, No Matthew's sign Neuro/Psych: no motor/sensory deficits, alert, normal mood/affect ICD10 Worksheet Patient Problems: Problems Problem Status Onset Acute renal failure Acute Distal radius fracture, right Acute Fall Acute Hyperglycemia Acute Lumbar compression fracture Acute
--- NOTE | 2017-03-22 18:57 | GDS ---
[f rep st] DISCHARGE SUMMARY DISCHARGE DIAGNOSES: 1. Right nondisplaced distal radial fracture and ulnar styloid fracture. 2. Pain due to this. 3. Leukocytosis. 4. Abnormal EKG. 5. Gait instability, fall. 6. Acute encephalopathy. 7. L1 compression fracture. 8. Acute kidney injury. 9. Constipation. 10. Diabetes type 2, poorly controlled. 11. Chronic obstructive pulmonary disease, chronic, hypoxemic, respiratory failure. 12. Chronic medical issues and including hypertension and obesity, congestive heart failure and atrial fibrillation. CONSULTATION: 1. Jossie Coronel. 2. Rebecca Plascencia. BRIEF HISTORY: Patient is a 71-year-old female with a history of diabetes type 2, poorly controlled, congestive heart failure, renal insufficiency, COPD on 3 L of oxygen, obesity, hypothyroidism, major depressive disorder, who presented to the ER after falling at her apartment in [facility]. Her oxygen came off at some point in the time she fell. She did not lose consciousness. She was transported to [facility] and had a wrist x-ray which showed a distal radius fracture. In addition, a lumbar spine x-ray was performed, which showed a possible acute L1 fracture. She was seen and evaluated by Orthopedics as well as Neurosurgery. At this time, her right arm will be left in a splint and further follow up with Dr. Roman. She will receive non operative surgery for her compression fracture. If it continues to bother her, she can follow up with Dr. Echeverria to further discuss options. HOSPITAL COURSE: 1. Right nondisplaced distal radial fracture and ulnar styloid fracture. She has a splint in place, nonweightbearing, to follow up with Dr. Roman in 1 week. 2. Pain due to this. Her pain improved after treatement with on [place] and gabapentin. 3. Leukocytosis. She has had persistently elevated white blood cell counts. Chest x-ray showed no infectious etiology. Urinalysis did not show any infectious etiology. She has been afebrile and has no complaints. Will have this monitored at the custodial facility. 4. Abnormal EKG. Her 12-lead showed some Q-waves; she has been in sinus rhythm. An echocardiogram was performed, which reviewed LVH without regional wall abnormalities. 5. Gait instability with fall. PT and OT have been recommending a custodial facility which she will be going there. 6. Acute encephalopathy. I suspect this was from too many narcotics. This resolved with cutting them back. 7. L1 compression fracture. She is wearing a brace when she is out of bed. 8. Acute kidney injury. Her creatinine went as high as 2.1. I suspect it is because she has not taken in adequate intake. Have held her Lasix and her ARB. Recommending for the custodial facility check her labs in 2 days and then resume if stable. 9. Constipation on bowel protocol. 10. Diabetes type 2. This is poorly controlled. A1c is 1. Lantus is at 25 units at bedtime with improvement. 11. COPD, chronic hypoxemic respiratory failure. This also could be due to her obesity and hypoventilatory syndrome. She is on 3 L and is at her baseline. 12. Chronic medical issues, overall stable. DISCHARGE CONDITION: Stable. Blood pressure is 149/74, heart rate 60, respiratory rate is 16, O2 sats on 3 L are 95%, temperature is 36.4 Celsius. MEDICATIONS AT DISCHARGE: Please see the EMR. DISCHARGE INSTRUCTIONS: 1. Further follow up with Dr. Roman in 1 week. 2. Follow up with Dr. Echeverria in 4 weeks. 3. To monitor her kidney function closely, can resume her Lasix and ARB once these numbers stay stable. Greater than 30 minutes discharging and coordinating inpatient's care. /[id number]/MODL MTDD
== END 2017-03-22 13:26 | DRG 551 ==
LOC: F3N 07:48 → OBSVTOIN 03-17 16:09
PROVIDERS: ADMIT Family Medicine; ATTEND Family Medicine
DX: S32.010A Wedge compression fracture of first lumbar vertebra, initial encounter for closed fracture (principal); G93.49 Other encephalopathy; S52.591A Other fractures of lower end of right radius, initial encounter for closed fracture; N17.9 Acute kidney failure, unspecified; J96.11 Chronic respiratory failure with hypoxia; S52.614A Nondisplaced fracture of right ulna styloid process, initial encounter for closed fracture; I50.40 Unspecified combined systolic (congestive) and diastolic (congestive) heart failure; R94.31 Abnormal electrocardiogram [ECG] [EKG]; R26.89 Other abnormalities of gait and mobility; K59.00 Constipation, unspecified; E11.69 Type 2 diabetes mellitus with other specified complication; J44.9 Chronic obstructive pulmonary disease, unspecified; I11.0 Hypertensive heart disease with heart failure; E66.9 Obesity, unspecified; I48.91 Unspecified atrial fibrillation; E03.9 Hypothyroidism, unspecified; G47.33 Obstructive sleep apnea (adult) (pediatric); W01.0XXA Fall on same level from slipping, tripping and stumbling without subsequent striking against object, initial encounter; Y92.129 Unspecified place in nursing home as the place of occurrence of the external cause; Z79.4 Long term (current) use of insulin; Z68.38 Body mass index [BMI] 38.0-38.9, adult
CPT/HCPCS: 92507-GN; 92523-GN; 96374; 97116-GP; 97162-GP; 97166-GO; 97530-GP; 97535-GO; G0378; G8978-GP-CK; G8979-GP-CJ; G8987-GO-CM; G8988-GO-CJ; G9165-GN-CK; J1170; J1815

== ENCOUNTER 2017-04-05 11:57 | Emergency (ER) | payer OTHER, MEDICAID ==
[2017-04-05 12:09] VITALS: RESP 18
--- NOTE | 2017-04-05 13:56 | EDPHY ---
H & P Time Seen by Provider: 04/05/17 12:28 HPI/ROS: CHIEF COMPLAINT: Swelling and pain right forearm HISTORY OF PRESENT ILLNESS: 71-year-old female presents to the emergency department by ambulance from [facility] complaining that her cast is too tight. The patient was seen in the emergency department in February and diagnosed with a distal radius fracture. She ultimately followed up with Dr. Mateus Roman who placed cast. Patient states that it feels very tight. She denies numbness or tingling in her fingers. Denies any other new trauma. She is right -hand dominant. ROS: Denies pain in her right elbow or shoulder. Denies numbness or tingling in her fingers. Past Medical/Surgical History: COPD, atrial fibrillation, hypertension, hyperlipidemia, hypothyroidism, diabetes, depression Social History: Currently staying at [facility] to rehab after recent fall Smoking Status: Former smoker Physical Exam: Examination of the right upper extremity reveals pink cast placed on her right wrist extending up to the right elbow. It is very swollen especially around the base of her right thumb. There is no redness in her finger tips. Her capillary refill is normal. No palpable bony tenderness in her fingers. Nontender to palpate the right elbow or right humerus. No swelling noted in the right humerus. Constitutional: Initial Vital Signs Temperature (C) 36.5 C 04/05/17 11:58 Heart Rate 66 04/05/17 11:58 Respiratory Rate 18 04/05/17 11:58 Blood Pressure 146/75 H 04/05/17 11:58 O2 Sat (%) 94 04/05/17 11:58 O2 Delivery Mode Nasal Cannula O2 (L/minute) 2 Allergies/Adverse Reactions: latex Allergy (Verified 03/16/17 02:56) oxycodone Allergy (Verified 03/19/17 13:12) Vomiting Home Medications: Medication Instructions Recorded Acetaminophen [Tylenol ES 500 mg 1,000 mg PO Q6 PRN 03/16/17 (*)] Apixaban [Eliquis] 5 mg PO BID 03/16/17 Budesonide/Formoterol 80/4.5 2 puffs IH BID 03/16/17 [Symbicort 80-4.5 Mcg Inhaler] Ferrous Sulfate [Ferrous Sulf 325 325 mg PO HS 03/16/17 MG (*)] Furosemide [Lasix 20 MG (*)] 20 mg PO BID@,12 03/16/17 Insulin Lispro [Humalog Kwikpen 13 unit SQ TIDMEAL 03/16/17 U-100] Levothyroxine [Synthroid 112 mcg 112 mcg PO DAILY06 03/16/17 (*)] Losartan/Hctz 50/12.5 [Hyzaar 1 tab PO DAILY 03/16/17 50/12.5MG (*)] Metoprolol Succinate Xr [Toprol Xl 200 mg PO DAILY 03/16/17 100 mg (*)] Potassium Cl [Klor-Con 10 meq (RX)] 10 meq PO DAILY 03/16/17 Pravastatin Sodium 80 mg PO HS 03/16/17 Tiotropium Inhaler [Spiriva 1 inh IH DAILY 03/16/17 Inhaler (RX)] Venlafaxine Xr [Effexor Xr 75MG 150 mg PO DAILY@12 03/16/17 (*)] amLODIPine BESYLATE [Norvasc 10 mg 10 mg PO DAILY 03/16/17 (*)] diphenhydrAMINE [Benadryl Cream] 1 chava TP HS PRN 03/16/17 Diclofenac Sodium 1% [Voltaren Gel 2 gm TP QID gel 03/22/17 (*)] Gabapentin [Neurontin 100 MG (*)] 100 mg PO TID cap 03/22/17 HYDROcodone/APAP 10/325 [[place] 1 tab PO Q6HRS PRN tab 03/22/17 10/325 (*)] Insulin Glargine [Lantus 100 25 units SC HS ml 03/22/17 UNITS/ML (*)] Melatonin [Melatonin 3 MG (*)] 3 mg PO HS tab 03/22/17 Polyethylene Glycol 3350 [Miralax 17 gm PO DAILY pkt 03/22/17 17 gm (*)] Sennosides/Docusate Sodium 1 - 2 tab PO BID tab 03/22/17 [Senokot-S] traMADol [Ultram 50 mg (*)] 50 mg PO Q6HRS PRN tab 03/22/17 MDM/Departure - MDM Medications Given: Discontinued Medications Hydrocodone Bitart/Acetaminophen ([place] 5/325) 2 tab PO EDNOW ONE Stop: 04/05/17 14:30 Last Admin: 04/05/17 14:36 Dose: 2 tab ED Course/Re-evaluation: 71-year-old female presents with her cast being too tight. The the cast was cut on both the radial and ulnar side and held together with an Roberto bandage. Patient's pain immediately resolved. She has no pain with palpation in her upper arm. Her capillary refill is normal. Her sensation is normal. She will be discharged home and was told to follow up with her orthopedic surgeon this week for recheck cast placement. I do not think this patient has a DVT. Her symptoms immediately improved after loosing the cast. No pain or swelling in her upper right arm. - Depart Disposition: Home, Routine, Self-Care Clinical Impression: Cast discomfort Condition: Good Instructions: Cast Care (ED) Additional Instructions: Follow-up with your orthopedic surgeon this week for cast placement. Keep your current cast and Roberto bandages on until you follow up with them this week. Return to the emergency department if he developed recurring swelling, increasing pain, or if you feel worse in any way. Referrals: Mateus Roman MD [Medical Doctor] - 2-3 days without fail (Orthopedic surgeon )
[2017-04-05] MEDS ORDERED: HYDROCODONE/APAP 5/325 TAB PO ONE (14:29)
[2017-04-05 15:05] VITALS: BP 165/75; PULSE 62; TEMP 97.5; O2SAT 99
--- NOTE | 2017-04-05 15:30 | ASMTCMCOM ---
CM Note CM Note Notes: Assisted with transport back to [facility]; arranged non-emergent stretcher transport through [facility] via pt's Medicare. PCS form completed, copy provided to EMS, original placed in bin to be scanned into e-chart. Patient had said she would feel more safe and comfortable being transported by stretcher as she is not able to withstand sitting in a wheelchair in her Jewitt back brace for very long. Spoke with Radha, studio artist at [facility] ([phone]) and gave RN report. Radha is aware patient needs to follow-up with Dr Roman this week for a new cast to her right forearm. Also verified pain meds administration and Radha is aware the ED gave pt her [place] dose around 1440. CM available for further assistance. Date Signed: 04/05/2017 03:29 PM Electronically Signed By:Susan Noel RN
--- NOTE | 2017-04-05 15:47 | ASDISCHSUM ---
Discharge Information Plan Status:SNF Medically Cleared to Leave: Discharge Date:04/05/2017 03:03 PM CM D/C Disposition:[facility] Facility ADT D/C Disposition:Home, Routine, Self-Care Projected Discharge Date:04/05/2017 03:03 PM Transportation at D/C:ALS/BLS Discharge Delay Reason: Follow-Up Date:04/05/2017 03:03 PM Discharge Slot: Final Diagnosis: Placement Information Patient Contact Information Contact Name:ANGELITA Relationship: Address: Home Phone: Work Phone: City: Alternate Phone: State/Zip Code: Email: Financial Information Financial Class:Medicare Advantage Plans Primary Plan Desc:[employer]AGE PLANS Primary Plan Number:[id number] Secondary Plan Desc:MEDICAID HEALTH FIRST [place] OP Secondary Plan Number:[id number] Assessment Information [facility] CM Progress Note CM Note CM Note Notes: Assisted with transport back to [facility]; arranged non-emergent stretcher transport through [facility] via pt's Medicare. PCS form completed, copy provided to EMS, original placed in bin to be scanned into e-chart. Patient had said she would feel more safe and comfortable being transported by stretcher as she is not able to withstand sitting in a wheelchair in her Jewitt back brace for very long. Spoke with Juanpablo Garcia RN at [facility] ([phone]) and gave RN report. Radha is aware patient needs to follow-up with Dr Roman this week for a new cast to her right forearm. Also verified pain meds administration and Radha is aware the ED gave pt her [place] dose around 1440. CM available for further assistance. Date Signed: 04/05/2017 03:29 PM Electronically Signed By:Susan Noel RN LACE LACE Acuity / Level of Care Answers: No. Comorbidities - select Answers: Diabetes without all that apply complications Congestive heart failure Chronic pulmonary disease Emergency dept visits in Answers: 2 last 6 months Score: 7 Date Signed: 04/05/2017 03:45 PM Electronically Signed By:Susan Noel RN Intervention Information Intervention Type:Transportation Date of Service:04/05/2017 03:45 PM Patient Type:Emergency Room Staff Member:ADRIANO Noel, Susan Hours:0.25 Discipline:Landscaping Supervisor Severity: Comment:[facility] non-emergent stretcher transport; PCS completed, copy provided to EMS, original placed in chart.
== END 2017-04-05 15:03 | disposition home or self-care (01) ==
LOC: EDUNIT#
DX: Z46.89 Encounter for fitting and adjustment of other specified devices (principal); J44.9 Chronic obstructive pulmonary disease, unspecified; I10 Essential (primary) hypertension; E11.9 Type 2 diabetes mellitus without complications; Z79.4 Long term (current) use of insulin; Z87.891 Personal history of nicotine dependence; Z91.040 Latex allergy status

== ENCOUNTER 2017-04-06 16:49 | Inpatient (IN) | payer OTHER, MEDICAID ==
--- NOTE | 2017-04-06 17:04 | EDPHY ---
HPI/HX/ROS/PE/MDM Narrative: CHIEF COMPLAINT: Possible TIA HISTORY OF PRESENT ILLNESS: The patient is an anticoagulated (Eliquis) 71 y/o female with a history of diabetes, atrial fibrillation, and hypertension, arriving via EMS after her [facility] noticed the patient had a 10-15 minute episode of inability to find words. She is unable to recall the episode. She is now complaining of right arm weakness. Patient's symptoms of word-finding difficulty have cleared. She is alert and articulate. Patient denies any numbness or tingling on her face, slurred speech, headache, weakness in her legs. No gait difficulties. No chest pain or shortness of breath. No fever, chills, palpitations, vomiting, diarrhea, urinary complaints, headache , lightheadedness. REVIEW OF SYSTEMS: Aside from elements discussed in the HPI, a comprehensive 10-point review of systems was reviewed and is negative. PAST MEDICAL HISTORY: Diabetes, COPD, atrial fibrillation, hypertension, hyperlipidemia, hypothroidism, depression SOCIAL HISTORY: Lives at [facility], retired, VITAL SIGNS: BP: 177/86 Others reviewed by me GENERAL: Well-developed, well-nourished, resting comfortably in no respiratory distress. HEENT: Atraumatic. Eyes: No icterus, no injection. EOMI. No nystagmus. TANESHA. Mouth: moist mucous membranes. No erythema or lesions. Neck: supple with no adenopathy. LUNGS: Clear to auscultation bilaterally, no wheezes, rhonchi or rales. CARDIAC: Regular rate and rhythm, no rubs, murmurs or gallops. ABDOMEN: Soft, nontender, nondistended, bowel sounds normal. BACK: No CVA tenderness. EXTREMITIES: Right upper extremity is in a cast. No edema. Range of motion normal throughout the lower extremities and left upper extremity. NEURO: Feels imbalanced while moving in bed. Alert and oriented. Left sided facial droop, this is looking better than when I first walked in. Cranial nerves II through XII are intact. Right lower extremity drifted and difficulty lifting right upper extremity. Sensation intact to light touch. SKIN: Warm and dry, no rash. PSYCHIATRIC: Normal mentation, no agitation. Portions of this note were transcribed by a medical aides teacher. I personally performed a history, physical exam, medical decision making, and confirmed accuracy of information the transcribed note. ED Course: The patient is an anticoagulated (Eliquis) 71 y/o female with a history of diabetes, atrial fibrillation, and hypertension, arriving via EMS after a possible TIA. On exam she has right lower extremity drift, difficulty lifting her right upper extremity, and a left-sided facial droop that is improving while I am examining her. Labs and EKG ordered. 1700: Stoke alert called due to neuro deficits. 1705: 12-LEAD EKG: Please see the full report in [facility]. My interpretation: Normal sinus rhythm with a rate of 61 1705: Consulted with Dr. Dale from [facility]. The patient is not a TPA candidate because she is on Eliquis. Recommend CT scan of the head as well as CTA of the head and neck. 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 No intra-arterial clot. Please see the full report. Patient will be admitted to the hospital for further evaluation TIA versus CVA as well as consideration of carotid endarterectomy. 1813: Consulted with Dr. Hua, neurologist, regarding this patient's symptoms. He agrees to follow this patient during admission. 1824: Consulted hospitalist service, Dr. Zazueta accepts admission of this patient. 2 tab [place] administered. 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 I telephoned results to Dr. Millan at 1745 hours. Imaging: Discussed imaging studies w/ call center assistant Radiologist, I viewed and interpreted images myself Laboratory Results: Laboratory Results 04/06/17 16:54 04/06/17 16:54 04/06/17 04/06/17 04/06/17 17:01 16:54 16:54 WBC RBC Hgb POC Hgb 15.0 gm/dL gm/dL (12.6-16.3) Hct POC Hct 44 % % (38-47) MCV MCH MCHC RDW Plt Count MPV Neut % (Auto) Lymph % (Auto) Lawrence % (Auto) Eos % (Auto) Baso % (Auto) Nucleat RBC Rel Count Absolute Neuts (auto) Absolute Lymphs (auto) Absolute Monos (auto) Absolute Eos (auto) Absolute Basos (auto) Absolute Nucleated RBC Immature Gran % Immature Gran # PT 15.3 SEC H SEC (12.0-15.0) INR 1.19 H (0.83-1.16) POC Sodium 139 mEq/L mEq/L (134-144) Sodium 137 mEq/L mEq/L (134-144) POC Potassium 4.1 mEq/L mEq/L (3.3-5.0) Potassium 4.7 mEq/L mEq/L (3.5-5.2) POC Chloride 98 mEq/L mEq/L (97-110) Chloride 93 mEq/L L mEq/L (97-110) Carbon Dioxide 37 mEq/l H mEq/l (22-31) Anion Gap 7 mEq/L L mEq/L (8-16) POC BUN 21 mg/dL mg/dL (7-23) BUN 21 mg/dL mg/dL (7-23) Creatinine 1.1 mg/dL H mg/dL (0.6-1.0) POC Creatinine 1.1 mg/dL H mg/dL (0.6-1.0) Estimated GFR 49 Glucose 212 mg/dL H mg/dL (70-100) POC Glucose 202 mg/dL H mg/dL (70-100) Calcium 11.0 mg/dL H mg/dL (8.5-10.4) Phosphorus 3.2 mg/dL mg/dL (2.5-4.5) Troponin I 0.021 ng/mL ng/mL (0.000-0.034) 04/06/17 16:54 WBC 10.57 10^3/uL H 10^3/uL (3.80-9.50) RBC 5.22 10^6/uL 10^6/uL (4.18-5.33) Hgb 15.1 g/dL g/dL (12.6-16.3) POC Hgb Hct 45.5 % % (38.0-47.0) POC Hct MCV 87.2 fL fL (81.5-99.8) MCH 28.9 pg pg (27.9-34.1) MCHC 33.2 g/dL g/dL (32.4-36.7) RDW 12.8 % % (11.5-15.2) Plt Count 367 10^3/uL 10^3/uL (150-400) MPV 10.0 fL fL (8.7-11.7) Neut % (Auto) 69.0 % % (39.3-74.2) Lymph % (Auto) 18.0 % % (15.0-45.0) Lawrence % (Auto) 8.4 % % (4.5-13.0) Eos % (Auto) 3.5 % % (0.6-7.6) Baso % (Auto) 0.7 % % (0.3-1.7) Nucleat RBC Rel Count 0.0 % % (0.0-0.2) Absolute Neuts (auto) 7.30 10^3/uL H 10^3/uL (1.70-6.50) Absolute Lymphs (auto) 1.90 10^3/uL 10^3/uL (1.00-3.00) Absolute Monos (auto) 0.89 10^3/uL H 10^3/uL (0.30-0.80) Absolute Eos (auto) 0.37 10^3/uL 10^3/uL (0.03-0.40) Absolute Basos (auto) 0.07 10^3/uL 10^3/uL (0.02-0.10) Absolute Nucleated RBC 0.00 10^3/uL 10^3/uL (0-0.01) Immature Gran % 0.4 % % (0.0-1.1) Immature Gran # 0.04 10^3/uL 10^3/uL (0.00-0.10) PT INR POC Sodium Sodium POC Potassium Potassium POC Chloride Chloride Carbon Dioxide Anion Gap POC BUN BUN Creatinine POC Creatinine Estimated GFR Glucose POC Glucose Calcium Phosphorus Troponin I Medications Given: Discontinued Medications Hydrocodone Bitart/Acetaminophen ([place] 5/325) 2 tab PO EDNOW ONE Stop: 04/06/17 18:17 Last Admin: 04/06/17 18:23 Dose: 2 tab Point of Care Test Results: 04/06/17 17:01 POC Sodium 139 POC Potassium 4.1 POC Chloride 98 POC BUN 21 POC Creatinine 1.1 H POC Glucose 202 H General Time Seen by Provider: 04/06/17 16:54 Initial Vital Signs: Initial Vital Signs Temperature (C) 36.4 C 04/06/17 16:53 Heart Rate 65 04/06/17 16:53 Respiratory Rate 18 04/06/17 16:53 Blood Pressure 177/86 H 04/06/17 16:53 O2 Sat (%) 95 04/06/17 16:53 O2 Delivery Mode Room Air Allergies/Adverse Reactions: latex Allergy (Verified 03/16/17 02:56) oxycodone Allergy (Verified 03/19/17 13:12) Vomiting Home Medications: Medication Instructions Recorded Apixaban [Eliquis] 5 mg PO BID 03/16/17 Budesonide/Formoterol 80/4.5 2 puffs IH BID 03/16/17 [Symbicort 80-4.5 Mcg Inhaler] Ferrous Sulfate [Ferrous Sulf 325 325 mg PO HS 03/16/17 MG (*)] Furosemide [Lasix 20 MG (*)] 20 mg PO BID@03/16/17 Insulin Lispro [Humalog Kwikpen 13 unit SQ TIDMEAL 03/16/17 U-100] Levothyroxine [Synthroid 112 mcg 112 mcg PO DAILY06 03/16/17 (*)] Losartan/Hctz 50/12.5 [Hyzaar 1 tab PO DAILY 03/16/17 50/12.5MG (*)] Metoprolol Succinate Xr [Toprol Xl 200 mg PO DAILY 03/16/17 100 mg (*)] Potassium Cl [Klor-Con 10 meq (RX)] 10 meq PO DAILY 03/16/17 Pravastatin Sodium 80 mg PO HS 03/16/17 Tiotropium Inhaler [Spiriva 1 inh IH DAILY 03/16/17 Inhaler (RX)] Venlafaxine Xr [Effexor Xr 75MG 150 mg PO DAILY@12 03/16/17 (*)] amLODIPine BESYLATE [Norvasc 10 mg 10 mg PO DAILY 03/16/17 (*)] diphenhydrAMINE [Benadryl Cream] 1 chava TP HS PRN 03/16/17 Diclofenac Sodium 1% [Voltaren Gel 2 gm TP QID gel 03/22/17 (*)] Gabapentin [Neurontin 100 MG (*)] 100 mg PO TID cap 03/22/17 HYDROcodone/APAP [[place] 1 tab PO Q6HRS PRN tab 03/22/17 (*)] Insulin Glargine [Lantus 100 25 units SC HS ml 03/22/17 UNITS/ML (*)] Melatonin [Melatonin 3 MG (*)] 3 mg PO HS tab 03/22/17 Polyethylene Glycol 3350 [Miralax 17 gm PO DAILY pkt 03/22/17 17 gm (*)] Sennosides/Docusate Sodium 1 - 2 tab PO BID tab 03/22/17 [Senokot-S] traMADol [Ultram 50 mg (*)] 50 mg PO Q6HRS PRN tab 03/22/17 Acetaminophen [Tylenol 325mg (*)] 650 mg PO Q4HRS PRN tab 04/08/17 Ibuprofen [Motrin (*)] 600 mg PO BID PRN tab 04/08/17 Ondansetron Odt [Zofran Odt 4 mg 4 mg PO Q4HRS PRN tab 04/08/17 (*)] Departure - [facility] Clinical Impression: Episode of word-finding difficulty TIA (transient ischemic attack) Qualifiers: Transient cerebral ischemia type: other Qualified Code(s): G45.8 - Other transient cerebral ischemic attacks and related syndromes Condition: Good Report Scribed for: Dannielle Millan Report Scribed by: Camelia Buck Date of Report: 04/06/17 Time of Report: 16:56
--- NOTE | 2017-04-06 17:07 | CPEKG ---
Heart Rate: 61 RR Interval: 984 P-R Interval: 176 QRSD Interval: 112 QT Interval: 412 QTC Interval: 415 P [place]: 11 QRS [place]: 33 T Wave [place]: 94 EKG Severity - ABNORMAL ECG - EKG Impression: SINUS RHYTHM EKG Impression: NONSPECIFIC INTRAVENTRICULAR CONDUCTION DELAY EKG Impression: PROBABLE LVH WITH SECONDARY REPOL ABNRM EKG Impression: INFERIOR INFARCT, OLD Electronically Signed By: Dannielle Millan 06-Apr-2017 22:39:01
[2017-04-06 17:33] LABS: PLATELET COUNT 367 10^3/uL (150-400)
[2017-04-06 17:42] LABS: INR 1.19 (0.83-1.16); PROTIME(PATIENT) 15.3 SEC (12.0-15.0)
[2017-04-06] MEDS ORDERED: HYDROCODONE/APAP 5/325 TAB PO ONE (18:16)
--- NOTE | 2017-04-06 19:12 | ASMTCMCOM ---
CM Note CM Note Notes: Patient brought into ED via EMS from [facility] for possible TIA; Stroke Alert was activated once in the ED. Pt admitted for TIA vs CVA, further neuro monitoring. Spoke with patient and she gave verbal permission to contact her daughters, Ana Luisa and Misti. Ana Luisa's # was provided from [facility]'s facesheet but not Misti's. Spoke with Ana Luisa and she says she will come to the ED and contact Misti. Patient was here in the ED yesterday for right forearm swelling due to her cast being too tight; patient returned yesterday to to follow up with ortho Dr Roman. Exact DC needs unknown; anticipate pt will return to . CM to follow. Date Signed: 04/06/2017 07:12 PM Electronically Signed By:Susan Noel RN
[2017-04-06] MEDS ORDERED: ACETAMINOPHEN 500 MG TAB PO PRN (21:08)
[2017-04-06] MEDS ORDERED: ONDANSETRON DISINTEGRATING 4 MG TAB PO PRN (21:10)
[2017-04-06] MEDS ORDERED: ONDANSETRON 4 MG/2 ML VIAL IVP PRN (21:10)
[2017-04-06] MEDS ORDERED: ACETAMINOPHEN 325 MG TAB PO PRN (21:10)
[2017-04-06] MEDS ORDERED: D50W 25 GM/50 ML VIAL IVP PRN (21:21)
[2017-04-06] MEDS: traMADol 50 MG TAB PO PRN (21:30)
[2017-04-06] MEDS: GABAPENTIN 100 MG CAP PO SCH (21:31)
--- NOTE | 2017-04-06 21:43 | GHP ---
[f rep st] HISTORY AND PHYSICAL DATE OF ADMISSION: 04/06/2017 CHIEF COMPLAINT: Expressive aphasia. HISTORY OF PRESENT ILLNESS: This is a 71-year-old female with a history of type 2 diabetes, hyperlip idemia, atrial fibrillation, on Eliquis, who presents with sudden onset of expressive aphasia and jodi e right-sided weakness. This lasted for about 10-15 minutes and has currently resolved. She is back to her baseline. She is not complaining of any weakness. She said nothing like this has ever happe sonya before. She did fall though during [place] and broke her right arm. REVIEW OF SYSTEMS: A 10-point review of systems was obtained and was negative. PAST MEDICAL HISTORY: 1. Type 2 diabetes. 2. COPD. 3. Atrial fibrillation. 4. Hypertension. 5. Hyperlipidemia. 6. Hypothyroidism. 7. Depression. 8. Obstructive sleep apnea. 9. Recent right arm fracture. MEDICATIONS: Medications are reviewed. SOCIAL HISTORY: Lives at [facility], is retired and . FAMILY HISTORY: Reviewed and noncontributory. PHYSICAL EXAMINATION: VITAL SIGNS: Afebrile. Blood pressure is 166/88, heart rate 64, oxygen satur ation 94% on 2 L. GENERAL: The patient is well developed, no apparent distress. HEENT: Nonicteric sclerae. Extraocular muscles intact. Moist mucous membranes. NECK: Supple. No thyromegaly. No carotid bruits. LUNGS: Good effort. Clear to auscultation bilaterally. CARDIOVASCULAR: Regular r ate and rhythm. No murmurs, rubs, or gallops. ABDOMEN: Positive bowel sounds. Soft, nontender, no ndistended. No hepatosplenomegaly. EXTREMITIES: No clubbing, cyanosis, or edema. SKIN: Without ra sh. Warm, dry, intact. NEUROLOGIC: Alert and oriented x3. Moving all 4 extremities. NEURO: Cran ial nerves 2 through 12 are intact. She does have 5/5 strength in all 4 extremities. PSYCH: Normal affect. LABS: White blood cell count is 10, hemoglobin 15, platelets are 367. Chemistries show creatinine 1 .1, glucose 202. CTA shows either occlusion of the left internal carotid versus high-grade stenosis, and 56% stenosis of the right internal. CT scan of the head shows an old left parietal cortical infarction. 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 The patient will be admitted to the neuro fl oor. 1. Transient ischemic attack. The patient symptoms appear to have resolved completely. 2. Left carotid stenosis. It is unclear if this is completely occluded versus subtotal occlusion. Neurology will be consulted. I am not sure if getting an MRA will be helpful to differentiate. Also would determine if surgery would be indicated in this situation. 3. Type 2 diabetes. We will continue insulin. 4. History of atrial fibrillation. The patient is on anticoagulation. I am going to hold it for to morning as we decide if surgery is going to be done at this hospitalization or not. We could cover with Lovenox at that point. It does take several days before Rashmi is completely out of the system for enough for surgery. 5. Hypertension. We will continue her medications. 6. Obstructive sleep apnea. CPAP. 7. Right arm fracture. The patient is in a splint. /[id number]/MODL
[2017-04-07] MEDS: HYDROCODONE/APAP 10/325 TAB PO PRN ×4 (02:19→21:32)
[2017-04-07] MEDS: LEVOTHYROXINE 112 MCG TAB PO SCH (05:59)
[2017-04-07] MEDS: LOSARTAN/HCTZ 50/12.5 1 TAB PO SCH (07:50)
[2017-04-07] MEDS: METOPROLOL SUCCINATE XR 100 MG TAB PO SCH (07:50)
[2017-04-07] MEDS: GABAPENTIN 100 MG CAP PO SCH ×3 (07:50→21:32)
[2017-04-07] MEDS: FUROSEMIDE 20 MG TAB PO SCH ×2 (07:51→11:45)
[2017-04-07] MEDS: POTASSIUM CL 10 MEQ TAB PO SCH (07:51)
[2017-04-07] MEDS: POLYETHYLENE GLYCOL 3350 17 GM PKT PO SCH (07:52)
[2017-04-07] MEDS: SENNOSIDES/DOCUSATE SODIUM TAB PO SCH ×2 (07:52→20:06)
[2017-04-07] MEDS: traMADol 50 MG TAB PO PRN ×3 (07:54→20:05)
--- NOTE | 2017-04-07 09:20 | PDMN ---
Medical Necessity Medical necessity: [id number] TIA: TIA vs CVA with concern for subacute to complete occlusion of L internal carotid artery- further eval nec. neuro consult, in pt with hx of afib, HTN, DM2, MOSES, COPD, > 2 midnights anticipated
[2017-04-07] MEDS: TIOTROPIUM INHALER 18 MCG/DOSE 5 DOSE/MDI IH SCH (09:27)
[2017-04-07] MEDS: BUDESONIDE/FORMOTEROL 80/4.5 60 PUFFS/MDI IH SCH ×2 (09:27→20:15)
[2017-04-07] MEDS: INSULIN LISPRO 100 UNIT/ML SC SCH ×6 (10:34→17:57)
[2017-04-07] MEDS ORDERED: INSULIN LISPRO 100 UNIT/ML SC ONE ×2 (10:38→14:08)
[2017-04-07] MEDS ORDERED: IBUPROFEN 600 MG TAB PO ONE (11:36)
[2017-04-07] MEDS: IBUPROFEN 600 MG TAB PO PRN ×2 (11:44→20:05)
[2017-04-07] MEDS: VENLAFAXINE XR 75 MG CAP PO SCH (11:45)
--- NOTE | 2017-04-07 15:27 | NEUROPROG ---
Assessment: HOSPITAL NEUROLOGY CONSULT REQUESTING: Greta Zazueta MD REASON: TIA HPI: 71 year old right-handed woman with a history of ischemic stroke, afib, HTN, HLD , uncontrolled IDDM2, MOSES who presented to our facility 04/06 out of concern for a stroke vs. TIA. Patient is unsure why she was admitted, but states she has been told her facility was worried about stroke symptoms. In other words, she doesn't recall any neurologic issues. However, per the medical record, the staff at her SNF observed at least 10-15 mins of word finding difficulty and RUE weakness. Patient had a recent right arm fracture for which she is casted. Currently she feels back to baseline. She does not recall any prior stroke, though her intake CT showed an old cortically based infarct in the left frontal and parietal regions. 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 ROS: As per the HPI, otherwise a complete 12 point ROS was performed and is negative ALLERGIES AND MEDS: As recorded in the EMR - reviewed and reconciled PFSH: As per the intake H&P by Dr. Zazueta from yesterday EXAM: VS reviewed in EMR GEN: obese woman laying in NAD, right arm casted HEENT: NCAT, sclera anicteric, conjunctiva not injected, MMM, oropharynx clear, no scalp tenderness NECK: supple, nontender, no meningismus CV: RRR s1 s2 wo m/r/c/g. Carotid pulses 2+ wo bruit NEURO: MS: awake, alert, oriented to self, place, not date or situation. Speech nondysarthric. No language disturbance. Follows commands. Attends to both sides. Clear episodic memory impairment on casual conversation. Mood euthymic. Adequate fund of knowledge. CN: pupils 3mm round and reactive. Intolerant of fundoscopy. VFF. Primary gaze centered. Full ocular motility, though smooth pursuits with saccadic intrusions. Facial sensation preserved. Face symmetric. Hearing grossly intact to finger rub. Palatoglossal movements intact. Shoulder shrug and head turn strong. MOTOR: normal bulk/tone. No adventitial movements. Full power throughout, with exception of RUE which gives way due to pain. SENSORY: symmetric LT/PP throughout. No extinction. COORD: no ataxia FN/HS. Parker preserved. REFLEX: plantars down. No clonus. DTRS 2/4. GAIT: deferred to PT safety eval DATA REVIEW: Labs reviewed in EMR LDL 65 A1c 10.2 PERSONALLY INTERPRETED RESULTS AND DATA: CT head wo per HPI CTA head wo per HPI MRI brain wo - no acute infarct, chronic microvascular ischemic changes in the subcortical white matter, chronic cortically based infarct left frontal and parietal lobes, no flow void LICA IMPRESSION AND RECOMMENDATIONS: // POSSIBLE TIA Patient with report of transient aphasia and RUE weakness. This has seemingly resolved. No evidence of acute ischemic on MRI. Could have been a TIA to the left anterior hemisphere, though, her carotid is already occluded. Could have been some primary cognitive issue resulting in word finding, and her RUE was recently injured which could have resulted in perceived weakness. In any case, would be prudent to treat as a TIA and optimize vascular risk factors. Carotid is already occluded, so nothing to intervene upon. - cont anticoagulation - cont pravastatin - LDL at goal < 70 - goal normotension - goal A1c < 6.5 - stroke education No further recommendations. Will sign off. Recall PRN. Objective: Vital Signs Temp Pulse Resp BP Pulse Ox 36.5 C 61 18 128/68 H 95 04/07/17 07:46 04/07/17 11:33 04/07/17 11:33 04/07/17 11:33 04/07/17 11:33 04/06/17 04/07/17 04/08/17 05:59 05:59 05:59 Intake Total 650 200 Output Total 1150 Balance -500 200 PT 15.3 SEC (12.0-15.0) H 04/06/17 16:54 INR 1.19 (0.83-1.16) H 04/06/17 16:54 Allergies/Adverse Reactions: latex Allergy (Verified 03/16/17 02:56) oxycodone Allergy (Verified 03/19/17 13:12) Vomiting
--- NOTE | 2017-04-07 17:49 | HOSPPROG ---
Hospitalist Progress Note Assessment/Plan: 1. 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 Poorly controlled Type 2 DM, on insulin -hgba1c >10 -needs to try to optimize regimen at [facility]/home 3. HTN -continue home meds 4. Hyperlipidemia -continue home meds 5. A fib -restart anti coags 6. MOSES -CPAP use 7. Hx R wrist frx and L1 compression frx -rehab per recs of PT/OT DISPO- discharge to [facility] in AM FULL CODE- AD scanned into chart PCP DVT ppx-chronic AC Subjective: Family in room. Feels like symptoms yesterday have resolved. No CP/ SOB. + pain from back and wrist fractures. Objective: Vital Signs Temp Pulse Resp BP Pulse Ox 97.7 F 61 18 150/71 H 93 04/07/17 07:46 04/07/17 16:25 04/07/17 16:25 04/07/17 16:25 04/07/17 16:25 04/06/17 04/07/17 04/08/17 11:59 11:59 11:59 Intake Total 850 Output Total 1150 1000 Balance -300 -1000 PT 15.3 SEC (12.0-15.0) H 04/06/17 16:54 INR 1.19 (0.83-1.16) H 04/06/17 16:54 - Time Spent With Patient Time Spent with Patient: greater than 35 minutes Time Spent with Patient: Greater than 35 minutes spent on this patients care, greater than 50% of time spent counseling, educating, and coordinating care regarding the above mentioned plan. - Pending Discharge Pending Discharge Within 24 Hours: Yes Pending Discharge Date: 04/08/17 Pending Discharge Time: 11:00 - Physical Exam Constitutional: no apparent distress, obese Ears, Nose, Mouth, Throat: moist mucous membranes Cardiovascular: irregularly irregular Respiratory: no respiratory distress, no rales or rhonchi, clear to auscultation Gastrointestinal: soft, non-tender abdomen Skin: warm Musculoskeletal: other (R wrist in cast) Neurologic: sensation intact bilaterally, CN II-XII Intact (grossly), other ( non focal), No weakness, No facial droop Psychiatric: interacting appropriately, not anxious, not encephalopathic, thought process linear, No poor insight, No poor judgement, No poor memory ICD10 Worksheet Patient Problems: Problems Problem Status Onset TIA (transient ischemic attack) Acute Acute renal failure Acute Distal radius fracture, right Acute Fall Acute Hyperglycemia Acute Lumbar compression fracture Acute
[2017-04-07] MEDS: APIXABAN 5 MG TAB PO SCH (20:06)
[2017-04-07] MEDS ORDERED: FERROUS SULFATE 325 MG TAB PO SCH (21:00)
[2017-04-07] MEDS ORDERED: INSULIN GLARGINE 100 UNITS/ML SYRINGE SC SCH (21:00)
[2017-04-07] MEDS ORDERED: MELATONIN 3 MG TAB PO SCH (21:00)
[2017-04-07] MEDS ORDERED: PRAVASTATIN SODIUM 40 MG TAB PO SCH (21:00)
[2017-04-08] MEDS: HYDROCODONE/APAP 10/325 TAB PO PRN ×2 (03:59→10:09)
[2017-04-08] MEDS: LEVOTHYROXINE 112 MCG TAB PO SCH (06:08)
[2017-04-08] MEDS: traMADol 50 MG TAB PO PRN ×2 (06:58→15:28)
[2017-04-08] MEDS: SENNOSIDES/DOCUSATE SODIUM TAB PO SCH (08:44)
[2017-04-08] MEDS: GABAPENTIN 100 MG CAP PO SCH ×2 (08:45→15:28)
[2017-04-08] MEDS: APIXABAN 5 MG TAB PO SCH (08:45)
[2017-04-08] MEDS: LOSARTAN/HCTZ 50/12.5 1 TAB PO SCH (08:45)
[2017-04-08] MEDS: METOPROLOL SUCCINATE XR 100 MG TAB PO SCH (08:45)
[2017-04-08] MEDS: POLYETHYLENE GLYCOL 3350 17 GM PKT PO SCH (08:46)
[2017-04-08] MEDS: POTASSIUM CL 10 MEQ TAB PO SCH (08:46)
[2017-04-08] MEDS: FUROSEMIDE 20 MG TAB PO SCH ×2 (08:46→11:56)
[2017-04-08] MEDS: INSULIN LISPRO 100 UNIT/ML SC SCH ×2 (09:09→13:07)
[2017-04-08] MEDS ORDERED: IBUPROFEN 600 MG TAB PO PRN (09:51)
[2017-04-08] MEDS ORDERED: HYDROCODONE/APAP 5/325 TAB PO PRN (09:51)
[2017-04-08] MEDS: BUDESONIDE/FORMOTEROL 80/4.5 60 PUFFS/MDI IH SCH (10:52)
[2017-04-08] MEDS: TIOTROPIUM INHALER 18 MCG/DOSE 5 DOSE/MDI IH SCH (10:53)
[2017-04-08] MEDS: VENLAFAXINE XR 75 MG CAP PO SCH (11:55)
[2017-04-08 12:36] VITALS: BP 128/72; PULSE 55; RESP 21; TEMP 97.5; O2SAT 94
[2017-04-08] MEDS ORDERED: MAGNESIUM HYDROXIDE 30 ML UDCUP PO PRN (13:18)
--- NOTE | 2017-04-08 13:31 | PDIAF ---
- Diagnosis Code Status: Full Code - Medication Management Discharge Medications: Medications to Continue on Transfer Apixaban [Eliquis] 5 mg PO BID 03/16/17 [Last Taken 04/06/17 09:00] Budesonide/Formoterol 80/4.5 [Symbicort 80-4.5 Mcg Inhaler] 2 puffs IH BID 03/16 [Last Taken 04/06/17 09:00] Ferrous Sulfate [Ferrous Sulf 325 MG (*)] 325 mg PO HS 03/16/17 [Last Taken 10/14] Furosemide [Lasix 20 MG (*)] 20 mg PO BID@03/16/17 [Last Taken 04/06/17] Insulin Lispro [Humalog Kwikpen U-100] 13 unit SQ TIDMEAL 03/16/17 [Last Taken 04/06/17 12:00] Levothyroxine [Synthroid 112 mcg (*)] 112 mcg PO DAILY06 03/16/17 [Last Taken ] Losartan/Hctz 50/12.5 [Hyzaar 50/12.5MG (*)] 1 tab PO DAILY 03/16/17 [Last Taken 04/06/17] Metoprolol Succinate Xr [Toprol Xl 100 mg (*)] 200 mg PO DAILY 03/16/17 [Last Taken 04/06/17] Potassium Cl [Klor-Con 10 meq (RX)] 10 meq PO DAILY 03/16/17 [Last Taken ] Pravastatin Sodium 80 mg PO HS 03/16/17 [Last Taken 04/05/17] Tiotropium Inhaler [Spiriva Inhaler (RX)] 1 inh IH DAILY 03/16/17 [Last Taken ] Venlafaxine Xr [Effexor Xr 75MG (*)] 150 mg PO DAILY@12 03/16/17 [Last Taken 11/14] amLODIPine BESYLATE [Norvasc 10 mg (*)] 10 mg PO DAILY 03/16/17 [Last Taken 11/14] diphenhydrAMINE [Benadryl Cream] 1 chava TP HS PRN 03/16/17 [Last Taken 03/15/17] Diclofenac Sodium 1% [Voltaren Gel (*)] 2 gm TP QID gel 03/22/17 [Last Taken Unknown] Gabapentin [Neurontin 100 MG (*)] 100 mg PO TID cap 03/22/17 [Last Taken 16:00] HYDROcodone/APAP 10/325 [Coalgate 10/325 (*)] 1 tab PO Q6HRS PRN tab 03/22/17 [ Last Taken 04/06/17 14:00] Insulin Glargine [Lantus 100 UNITS/ML (*)] 25 units SC HS ml 03/22/17 [Last Taken 04/05/17] Melatonin [Melatonin 3 MG (*)] 3 mg PO HS tab 03/22/17 [Last Taken Unknown] Polyethylene Glycol 3350 [Miralax 17 gm (*)] 17 gm PO DAILY pkt 03/22/17 [Last Taken 04/06/17] Sennosides/Docusate Sodium [Senokot-S] 1 - 2 tab PO BID tab 03/22/17 [Last Taken 04/06/17 09:00] traMADol [Ultram 50 mg (*)] 50 mg PO Q6HRS PRN tab 03/22/17 [Last Taken 12:00] Acetaminophen [Tylenol 325mg (*)] 650 mg PO Q4HRS PRN tab 04/08/17 [Last Taken Unknown] Ibuprofen [Motrin (*)] 600 mg PO BID PRN tab 04/08/17 [Last Taken Unknown] Ondansetron Odt [Zofran Odt 4 mg (*)] 4 mg PO Q4HRS PRN tab 04/08/17 [Last Taken Unknown] Detention Antibiotics: n/a Discharge Medications: Refer to the Discharge Home Medication list for PRN reason. PICC Care - Routine: N/A - Orders Isolation Type: None Diet Recommendation: ADA 2000 consistent carb Diet Texture: Regular Texture Diet, Thin Liquids Weigh Patient: weekly Irvin: Not applicable Activity/Weight Bearing Restrictions: per pt/ot recommendations, also needs FU with Dr Roman ortho - Follow Up Care Current Providers and Referrals: Mateus Roman MD [Medical Doctor] - (call office for date of FU appt, has a new cast on R wrist today) Patient,NotPresent [Unknown] -
--- NOTE | 2017-04-08 14:21 | GDS ---
[f rep st] DISCHARGE SUMMARY SERVICE: [facility] hospitalists. CONSULTATIONS: Neurology, Dr. Jose Hua. IMAGING PROCEDURES: 1. Brain MRI: Old cortical infarcts involving left parietal and left frontal lobes. No acute infarct, hemorrhage, hydrocephalus, mass effect or herniation. Mild diffuse cerebral atrophy. 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 Multiple nonspecific T2 FLAIR abnormalities in the bilateral cerebral hemispheres. 2. Wrist x-ray, right which showed a healing complex fracture of the distal right radius with intra-articular involvement, persistent lucency and good alignment of ulnar styloid fracture, scaphoid lunate dissociation. 3. Neck CTA. 4. Head CTA. 5. Head CT. ADMISSION DIAGNOSES: 1. Transient ischemic attack. 2. Left internal carotid artery stenosis. 3. Type 2 diabetes, insulin dependent. 4. History of atrial fibrillation. 5. Hypertension. 6. Sleep apnea. 7. Right wrist fracture, previous. 8. L1 compression fracture, previous. DISCHARGE DIAGNOSES: 1. Transient ischemic attack. 2. Left internal carotid artery stenosis. 3. Type 2 diabetes, insulin dependent. 4. History of atrial fibrillation. 5. Hypertension. 6. Sleep apnea. 7. Right wrist fracture, previous. 8. L1 compression fracture, previous. HISTORY OF PRESENT ILLNESS: For admission history and physical, please see previously dictated note by Dr. Zazueta. HOSPITAL COURSE: The patient was transferred from [place] for evaluation of acute onset of speech and word-finding difficulty, concerning for a stroke. Stroke Alert was called, and [facility] was consulted in the emergency department. She was not a t-PA candidate. She had a head and neck CT along with CTAs. Symptoms resolved while in the emergency department, and she was admitted to the hospital for further evaluation and observation. . Dr. Hua, Neurology came to evaluate the patient. She was already on full medical therapy and after reviewing the MRI report his recommendation was to continue with medical therapy. Hemoglobin A1c was done while she was in the hospital, and it was 10.2. PT/OT evaluations were done, and she is ambulatory with no further focal neurological deficits. She has a history of a right wrist and L1 fracture after a fall in February. She has a cast on her right wrist, and this became quite painful throughout her stay, and she was able to remove the cast herself. On the day of discharge, I ordered another x-ray to ensure that the wrist was healing and position had not changed. I called Dr. Roman's office to see if they would be able to come into the hospital and replace the cast. The physician's medical services assistant from [facility] did come over and place a new cast. The patient said that it was much more comfortable, and she will follow up with them as an outpatient as directed. Diabetes is not in good control, according to her A1c. Her blood sugars while checked here were also slightly elevated. This should be addressed at [facility] due to her recent TIA and history of strokes. She and her family was informed of the complete blockage of the left ICA, and no further intervention of that is recommended. DISCHARGE INSTRUCTIONS: She has been a transferred back to [facility] to continue with rehabilitation. (She was previously in independent living prior to the fall and the fractures). [facility] should contact Dr. Roman's office in regard to when this cast needs to be removed and her followup appointments. I also recommend that she follow up with Dr. Hua at [facility] in 2-4 weeks. If at any time she has recurrent acute neurological symptoms, increasing pain from her fractures or other concerns, she should return immediately to the emergency department for evaluation. DISCHARGE MEDICATIONS: Please see her transfer care summary, but in brief, the only new medication that was added was ibuprofen to take sparingly to assist with pain. /[id number]/MODL MTDD
--- NOTE | 2017-04-09 10:44 | ASDISCHSUM ---
Discharge Information Plan Status:SNF Medically Cleared to Leave: Discharge Date:04/08/2017 03:41 PM D/C Disposition:Residential Facility ADT D/C Disposition:Residential Facility Projected Discharge Date:04/08/2017 11:00 AM Transportation at D/C: Discharge Delay Reason: Follow-Up Date:04/08/2017 11:00 AM Discharge Slot: Final Diagnosis: Placement Information Referral Type:*Half-Way/SNF Referral ID:[id number] Provider Name:[facility] Address 1:[address] Address 2: City:[place] Selection Factors: State:[place] Patient Contact Information Contact Name:ANGELITA Relationship: Address: Home Phone: Work Phone: City: [facility] Phone: [facility] Code: Email: Financial Information Financial Class:Medicare Advantage Plans Primary Plan Desc:[facility] [employer] Primary Plan Number:[id number] Secondary Plan Desc:[employer] [place] Secondary Plan Number:[id number] Assessment Information [facility] CM Progress Note CM Note CM Note Notes: Patient brought into ED via EMS from [facility] for possible TIA; Stroke Alert was activated once in the ED. Pt admitted for TIA vs CVA, further neuro monitoring. Spoke with patient and she gave verbal permission to contact her daughters, Ana Luisa and Misti. Ana Luisa's # was provided from [facility]'s facesheet but not Misti's. Spoke with Ana Luisa and she says she will come to the ED and contact Misti. Patient was here in the ED yesterday for right forearm swelling due to her cast being too tight; patient returned yesterday to to follow up with ortho Dr Roman. Exact DC needs unknown; anticipate pt will return to . CM to follow. Date Signed: 04/06/2017 07:12 PM Electronically Signed By:Susan Noel RN Case Management Discharge Plan Note Case Management Discharge Discharge Order Complete? Answers: Yes Patient to Obtain Answers: Independently Medications Transportation Arranged Answers: Other Notes: [facility] Transport will Pick (Date 04/08/2017 03:30 PM & Time) Faxed Final Orders Answers: Yes Family Notified Answers: Yes Discharge Comments Notes: Patient discharged back to [facility]. All forms faxed to facility. Transport arranged by Isabela Rodriges to call report. Date Signed: 04/08/2017 02:32 PM Electronically Signed By:Rosa Benitez RN Intervention Information Intervention Type:*Incorrect Registration Date of Service:04/07/2017 09:12 AM Patient Type:Observation Staff Member:ADRIANO Pyle, Emily Hours: Discipline: Severity: Comment:
== END 2017-04-08 15:41 | DRG 69 ==
LOC: EDUNIT# → OBSVTOIN 18:05 → F3N 20:08
PROVIDERS: ADMIT Internal Medicine; ATTEND Family Medicine
DX: G45.9 Transient cerebral ischemic attack, unspecified (principal); I65.22 Occlusion and stenosis of left carotid artery; E11.65 Type 2 diabetes mellitus with hyperglycemia; I48.91 Unspecified atrial fibrillation; I10 Essential (primary) hypertension; G47.30 Sleep apnea, unspecified; S62.101D Fracture of unspecified carpal bone, right wrist, subsequent encounter for fracture with routine healing; W19.XXXD Unspecified fall, subsequent encounter; J44.9 Chronic obstructive pulmonary disease, unspecified; E78.5 Hyperlipidemia, unspecified; E03.9 Hypothyroidism, unspecified; F32.9 Major depressive disorder, single episode, unspecified; Z79.01 Long term (current) use of anticoagulants
CPT/HCPCS: 82947-QW; 92610-GN; 97165-GO; 97535-GO; G8987-GO-CL; G8988-GO-CJ; G8996-GN-CH; G8997-GN-CH; G8998-GN-CH; J1815